=== PATIENT | male | born 1960 | race Caucasian/White ===

== ENCOUNTER → 2018-10-19 07:27 | Outpatient (CLI) | payer OTHER, SELFPAY ==
--- NOTE | 2018-10-19 07:33 | US_ITS ---
US abdomen complete HISTORY: ITS.REASON: ABD PAIN ORDERING PHYSICIAN: Julián Hahn MD PATIENT AGE: 57 years COMPARISON: None FINDINGS: Visualized portions of the pancreas and IVC appear normal. There is diffuse increased echogenicity throughout the liver without focal abnormality. AP diameter of the right hepatic lobe is 13.5 cm which is normal. Common bile duct is 3.7 mm which is normal. There is no intrahepatic biliary dilatation. Gallbladder is normal. The length of the right and left kidneys are 10.3 and 10.8 cm respectively. Kidneys appear normal. Length of the spleen is 9.2 cm which is normal. Visualized portions of the aorta are unremarkable although this area is evaluation is limited because of attenuation of the sound beam because of the bowel gas. Impression: Possible hepatic steatosis or fibrosis. No acute process.
== END ==
PROVIDERS: PCP Family Medicine; Visit Provider Family Medicine
DX: R10.13 Epigastric pain (principal)
CPT/HCPCS: 76700

== ENCOUNTER → 2018-11-06 11:29 | Outpatient (CLI) | payer OTHER, SELFPAY ==
[2018-11-06 11:58] LABS: Basophils % 0.6 % (0.1-2.0); Eosinophils # 0.4 K/mm3 (0.0-0.4); Eosinophils % 5.5 % (0.1-12.0); Hematocrit 45.6 % (42.0-52.0); Hemoglobin 14.7 g/dL (14.1-18.0); Lymphocytes # 1.6 K/mm3 (0.7-4.5); Lymphocytes % 23.2 % (10-50); Mean Corpuscular HGB Conc 32.3 g/dL (31.8-35.4); Mean Corpuscular Hemoglobin 31.5 pg (27.0-31.2); Mean Corpuscular Volume 97.5 fl (80-94); Mean Platelet Volume 7.4 fl (7.4-10.4); Monocytes # 0.5 K/mm3 (0.1-1.0); Monocytes % 7.1 % (1.7-9.3); Neutrophils # 4.3 K/mm3 (1.8-7.8); Neutrophils % 63.6 % (37.0-80.0); Platelet Count 284 K/mm3 (142-424); Red Blood Count 4.67 M/mm3 (4.60-6.20); Red Cell Distribution Width 13.4 % (11.5-17.5); White Blood Count 6.8 K/mm3 (4.8-10.8)
[2018-11-06 12:31] LABS: INR 0.96 (0.9-1.1)
[2018-11-06 13:04] LABS: Alanine Aminotransferase 50 U/L (12-78); Albumin Level 3.9 gm/dL (3.4-5.0); Albumin/Globulin Ratio 1.1 (1.1-1.8); Alkaline Phosphatase 62 U/L (46-116); Anion Gap 12.5 mEq/L (5-15); Aspartate Amino Transferase 21 U/L (15-37); Bilirubin,Total 0.5 mg/dL (0.2-1.0); Blood Urea Nitrogen 20 mg/dL (7-18); Calcium 9.9 mg/dL (8.5-10.1); Carbon Dioxide 30 mmol/L (21.0-32.0); Chloride 103 mmol/L (98-107); Creatinine,Serum 1.02 mg/dL (0.70-1.30); Estimated Glomerular Filt Rate 75 ml/min (>60); GFR (African American) 91 ML/MIN (>60); Globulin 3.7 gm/dl (1.3-3.2); Glucose 102 mg/dL (74-106); Potassium 4.5 mmoL/L (3.5-5.1); Sodium 141 mmol/L (136-145); Total Protein,Serum 7.6 gm/dL (6.4-8.2)
[2018-11-07 08:16] LABS: Hep A Ab, IgM Negative (Negative); Hepatitis B Core Antibody IgM Negative (Negative); Hepatitis B Surface Antigen Negative (Negative)
[2018-11-08 09:35] LABS: Hepatitis C Antibody <0.1 s/co ratio (0.0-0.9)
== END ==
PROVIDERS: Visit Provider Surgery
DX: R10.12 Left upper quadrant pain (principal); R10.9 Unspecified abdominal pain
CPT/HCPCS: 36415; 80053; 80074; 85025; 85610

== ENCOUNTER → 2018-12-18 08:00 | Outpatient (POV) | payer OTHER, SELFPAY ==
[2018-12-18 08:34] VITALS: BP 136/93; PULSE 65; RESP 18; O2SAT 98; BMI 35.2
--- NOTE | 2018-12-18 09:23 | XR_ITS ---
PROCEDURE: XR SACROILIAC JOINT BI MIN 3V CLINICAL INDICATION: BACK AND LEG PAIN COMPARISON: ABDPELW CT ABD PELVIS W/ CONTRAST from 02/21/2017 FINDINGS: The SI joints have an unremarkable appearance. There are minimal osteoarthritic changes of the right hip IMPRESSION: Negative SI joints Minimal osteoarthritic change right hip Dictated by: Juma Reed MD 12/18/2018 14:26 Electronically signed by Juma Reed MD in [place] 12/18/2018 14:26
--- NOTE | 2018-12-19 10:54 | HMH.PMCON ---
Assessment and Plan (1) Sacroiliac joint pain Current visit: Yes Status: Chronic Category: Medical Code(s): M53.3 - Sacrococcygeal disorders, not elsewhere classified (2) Sacroiliitis Current visit: Yes Status: Chronic Category: Medical Code(s): M46.1 - Sacroiliitis, not elsewhere classified - Assessment and plan all Dx Assessment and Plan for all problems:: We will schedule right SI joint injection for the patient. Patient had talked about the diagnostic nature of this. Patient may be a candidate for either an SI joint fusion or RFA. I do believe this would benefit him given his non-benefit from epidurals and medial branch blocks. I will follow-up with the patient after his injection reassess his symptoms at that time he is been instructed to call the office if he has any issues prior to his next appointment. He is continuing a home stretching program. Dr. Barrera has reviewed this note and agrees with this plan of care. This note was dictated using voice recognition software and may contain errors or omissions HPI - Data of Consult Consult date: 12/18/18 Requesting Physician: Elizabeth Conde APRN Primary Care Provider: Lalito Conklin MD - Consult Narrative Reason for consult: Low back pain History of present illness: Mr. Schmitz is a 58 year old male who presents today for consultation in regards to his low back pain on the right side. Patient is seen multiple specialists in order to move forward with treatment. He had several epidural injections and blocks. Patient states most the pain is low back on the right side radiating into his groin and down his leg but does not past the knee. Patient has difficulty with extended periods of sitting. Patient rates his pain today 5 out of 10 and states is constant. Patient is tried multiple medications. Patient is on anti-inflammatories. He is tried physical therapy he has done over 6 months of conservative therapies. CC: Elizabeth Conde APRN [facility] History I have reviewed the patient's past medical history: Yes Medical History: Reports:: Anxiety, Depression, Gastroesophageal Reflux Disease(GERD), Hypertension, Kidney Stones Denies:: Diabetes Mellitus Type 1, Diabetes Mellitus Type 2, Lung Disease, Seizures *Have you ever received a pneumonia vaccine?: Yes *Have you received a flu vaccine this season?: Yes Other Medical History: Reports: Arthritis Other Surgeries: Yes: Appendectomy, Colonoscopy, EGD, Other Amputation: No - *Social History Smoking Status: Never smoker Alcohol Intake: never Alcohol Intake Frequency:: a few times a week Substance Use Type: denies use *Occupational Status:: other Housing: house Household Members: other *Travel in the last 8 weeks: None - Psychiatric History Pschychiatric History:: Reports:: Anxiety, Depression Family Hx:: No significant family history Review of Systems - Review of Systems ROS General: no recent weight change, no fever, no sleep disturbances Respiratory: no cough, no shortness of air, no recurring pulmonary infections Cardiovascular/Peripheral Vascular: No chest pain, No palpitations, no edema, no shortness of breath. Gastrointestinal: no incontinence, normal bowel movements reported Genitourinary: no incontinence Musculoskeletal: SI joint pain on the right side Psychiatric: normal mood/ affect, Neurological: [denies weakness in extremities], [denies balance issues] Meds Home Medications Medication Instructions Recorded Confirmed Type acetaminophen 500 mg tablet 500 mg PO Q6H PRN 11/06/18 12/04/18 History meloxicam 15 mg tablet 15 mg PO DAILY 11/06/18 12/04/18 History metoprolol succinate ER 100 mg 100 mg PO DAILY 11/06/18 12/04/18 History capsule sprinkle, ext. release [address] 40 mg granules 40 mg PO DAILY 11/06/18 12/04/18 History delayed-release for susp in packet tizanidine 4 mg capsule 4 mg PO QHS PRN 11/06/18 12/04/18 History valsartan 320 1 t
--- NOTE | 2018-12-19 10:59 | P.CONS_ITS ---
Assessment and Plan (1) Sacroiliac joint pain Current visit: Yes Status: Chronic Category: Medical Code(s): M53.3 - Sacrococcygeal disorders, not elsewhere classified (2) Sacroiliitis Current visit: Yes Status: Chronic Category: Medical Code(s): M46.1 - Sacroiliitis, not elsewhere classified - Assessment and plan all Dx Assessment and Plan for all problems:: We will schedule right SI joint injection for the patient. Patient had talked about the diagnostic nature of this. Patient may be a candidate for either an SI joint fusion or RFA. I do believe this would benefit him given his non- benefit from epidurals and medial branch blocks. I will follow-up with the patient after his injection reassess his symptoms at that time he is been instructed to call the office if he has any issues prior to his next appointment. He is continuing a home stretching program. Dr. Barrera has reviewed this note and agrees with this plan of care. This note was dictated using voice recognition software and may contain errors or omissions HPI - Data of Consult Consult date: 12/18/18 Requesting Physician: Elizabeth Conde APRN Primary Care Provider: Lalito Conklin MD - Consult Narrative Reason for consult: Low back pain History of present illness: Mr. Schmitz is a 58 year old male who presents today for consultation in regards to his low back pain on the right side. Patient is seen multiple specialists in order to move forward with treatment. He had several epidural injections and blocks. Patient states most the pain is low back on the right side radiating into his groin and down his leg but does not past the knee. Patient has difficulty with extended periods of sitting. Patient rates his pain today 5 out of 10 and states is constant. Patient is tried multiple medications. Patient is on anti-inflammatories. He is tried physical therapy he has done over 6 months of conservative therapies. CC: Elizabeth Conde APRN [facility] History I have reviewed the patient's past medical history: Yes Medical History: Reports:: Anxiety, Depression, Gastroesophageal Reflux Disease(GERD), Hypertension, Kidney Stones Denies:: Diabetes Mellitus Type 1, Diabetes Mellitus Type 2, Lung Disease, Seizures *Have you ever received a pneumonia vaccine?: Yes *Have you received a flu vaccine this season?: Yes Other Medical History: Reports: Arthritis Other Surgeries: Yes: Appendectomy, Colonoscopy, EGD, Other Amputation: No - *Social History Smoking Status: Never smoker Alcohol Intake: never Alcohol Intake Frequency:: a few times a week Substance Use Type: denies use *Occupational Status:: other Housing: house Household Members: other *Travel in the last 8 weeks: None - Psychiatric History Pschychiatric History:: Reports:: Anxiety, Depression Family Hx:: No significant family history Review of Systems - Review of Systems ROS General: no recent weight change, no fever, no sleep disturbances Respiratory: no cough, no shortness of air, no recurring pulmonary infections Cardiovascular/Peripheral Vascular: No chest pain, No palpitations, no edema, no shortness of breath. Gastrointestinal: no incontinence, normal bowel movements reported Genitourinary: no incontinence Musculoskeletal: SI joint pain on the right side Psychiatric: normal mood/ affect, Neurological: [denies weakness in extremities], [denies balance issues] Meds Home Medications Medication Instructions Recorded Confirmed Type
== END ==
PROVIDERS: PCP Family Medicine; Visit Provider Clinical Nurse Specialist Family Health
DX: M53.3 Sacrococcygeal disorders, not elsewhere classified (principal); M46.1 Sacroiliitis, not elsewhere classified
CPT/HCPCS: 72202; 99202

== ENCOUNTER → 2020-06-02 08:13 | Outpatient (CLI) | payer OTHER, SELFPAY ==
[2020-06-02 09:37] LABS: Coronavirus 19 IgG Antibody Negative (Negative); Coronavirus 19 IgM Antibody Negative (Negative)
== END ==
PROVIDERS: Visit Provider Surgery
DX: Z01.812 Encounter for preprocedural laboratory examination (principal)
CPT/HCPCS: 36415; 86328

== ENCOUNTER 2020-06-04 06:09 | Day surgery (SDC) | payer OTHER, SELFPAY ==
[2020-06-02 16:37] VITALS: BMI 35.9
[2020-06-04 07:01] VITALS: BP 129/82; PULSE 71; RESP 18; TEMP 36.1; O2SAT 98
[2020-06-04 07:31] VITALS: O2SAT 98
--- NOTE | 2020-06-04 07:56 | HMH.ANESCL ---
[facility] Anesthesia Checklist - Patient Identification Patient Identification: Arm Band - Structural Data Admitted From: Home Planned Operative Procedure/s: colonoscopy Consent for Planned Operative Procedure(s) Verified: Yes Verified Documents: Surgical Consent, History and Physical - NPO Status Verified Time NPO: 00:00 - Additional verifications Anesthesia Reactions: No - Airway Assessment C-Spine Mobility Assessed: Yes (mp2) TMJ Mobility Assessed: Yes Dentition: Good Dentition - Neurological Assessment Level of Consciousness: Awake, Alert - Anesthesia Plan Anesthesia Risk discussed: Yes Anesthesia Plan: Verified ASA Class: II Anesthesia Type: MAC [facility] History I have reviewed the patient's past medical history: Yes Medical History: Reports:: Anxiety, Depression, Gastroesophageal Reflux Disease(GERD), Hyperlipidemia, Hypertension, Kidney Stones Denies:: Cancer, Diabetes Mellitus Type 1, Diabetes Mellitus Type 2, Internal Pacemaker, Lung Disease, MRSA, Seizures *Have you ever received a pneumonia vaccine?: No *Have you received a flu vaccine this season?: Yes Other Medical History: Reports: Arthritis Anesthesia experience/problems:: nac Other Surgeries: Yes: Appendectomy, Colonoscopy, EGD, Other. No: Pacemaker Amputation: No - *Social History Smoking Status: Never smoker Alcohol Intake: never Alcohol Intake Frequency:: a few times a week Substance Use Type: denies use *Occupational Status:: retired Housing: house Household Members: other *Travel in the last 8 weeks: None - Psychiatric History Pschychiatric History:: Reports:: Anxiety, Depression Family Hx:: No significant family history
[2020-06-04 08:12] VITALS: BP 99/68; PULSE 68; RESP 18; TEMP 36.1; O2SAT 96
--- NOTE | 2020-06-04 08:13 | P.PCN_ITS ---
- Procedure: Date: 06/04/20 Patient Date of :: 1960 Procedure Performed:: Total colonoscopy to terminal ileum with biopsies and polypectomy using cold snare and biopsy forceps Indications:: Patient is a 59-year-old male referred by Dr. Conklin for colonoscopy to investigate bright red rectal bleeding. Of note, the patient underwent ERCP in [address] Luther Dickson for pancreatic pseudocyst and had developed pancreatitis. In December, he underwent EGD and colonoscopy by Dr. Sheets. He was found to have: Sliding hiatal hernia Moderate to severe patchy gastritis Shallow linear proximal gastric body ulcer Bowel preparation moderate for colonoscopy Fairly significant tortuosity and spasticity Focal inflammatory changes at ileocecal valve Transverse colon polyp Adjacent large pedunculated polyps at 25 cm Adjacent large pedunculated polyps at 20 cm Large pedunculated polyp at 18 cm Anal canal polyp He did have H. pylori positivity. He had marked chronic focally active gastritis. Several polyps were removed including at least 3 serrated adenomas and a tubular adenoma. It appeared as though Dr. Sheets had recommended a repeat colonoscopy 6 months.he did not have a subsequent colonoscopy. I had done appendectomy on him on 01/17/2017. I had performed upper endoscopy on him on 11/21/2018 and he did have a sliding hiatal hernia. He has had about 6 months of occasional rectal bleeding with what he describes as sometimes significant blood. Performing Provider:: Mahesh Jacobson MD Referring Provider:: Lalito Conklin MD Sedation:: MAC sedation Procedure:: Patient was taken to endoscopy procedure room. He was positioned in lateral decubitus position. Digital examination revealed some minor noninflamed external hemorrhoids. Variable stiffness Olympus colonoscope was inserted via the anus. It was advanced to the cecum. Appendiceal remnant and ileocecal valve were clearly identified. Colonic preparation was fair but adequate visualization was achieved with irrigation and suctioning. Colonoscope was advanced into the terminal ileum. There is some minor erythematous mucosa and biopsies were obtained. Colonoscope was withdrawn through the colon with careful surveillance. In the cecum there is tiny diminutive polyp removed with biopsy forceps. In the proximal transverse colon there was an adenomatous appe aring polyp removed with cold cutting snare. In the distal transverse colon there is a diminutive polyp removed with biopsy forceps. In the splenic flexure there is a small polyp removed with cold cutting snare. In the sigmoid colon there was a polyp removed with biopsy forceps. In the distal sigmoid there were multiple hyperplastic appearing polyps removed with biopsy forceps. In the rectosigmoid region there were multiple hyperplastic appearing polyps removed with biopsy forceps. The rectum there were several hyperplastic appearing polyps 2 of these were removed with cold cutting snare and 1 removed with biopsy forceps. Retroflexion revealed nonbleeding internal hemorrhoids. Colonoscope was withdrawn. Findings:: Patchy erythema in the terminal ileum. Multiple polyps, mostly appeared hyperplastic Internal hemorrhoids Recommendations:: Likely repeat colonoscopy in 3 years. Source of bleeding was likely internal hemorrhoids given the findings Complications:: None immediately apparent Estimated blood obtained (mL): 3
[2020-06-04 08:22] VITALS: BP 122/86; PULSE 76; RESP 18; O2SAT 97
[2020-06-04 08:33] VITALS: BP 155/106; PULSE 69; RESP 18; O2SAT 97
[2020-06-04 08:49] VITALS: BP 144/93; PULSE 53; RESP 18; O2SAT 98
== END 2020-06-04 08:55 | disposition home or self-care (01) ==
LOC: OUTP 06:11
PROVIDERS: PCP Family Medicine; Visit Provider Surgery
PROC: 0DJD8ZZ Inspection of Lower Intestinal Tract, Via Natural or Artificial Opening Endoscopic (ICD-10-PCS; CPT 45385; principal; 2020-06-04 07:30)
DX: Z87.19 Personal history of other diseases of the digestive system; L53.8 Other specified erythematous conditions; K63.5 Polyp of colon; K64.9 Unspecified hemorrhoids; I10 Essential (primary) hypertension; E78.5 Hyperlipidemia, unspecified; K21.9 Gastro-esophageal reflux disease without esophagitis; F41.9 Anxiety disorder, unspecified; F32.9 Major depressive disorder, single episode, unspecified; M19.90 Unspecified osteoarthritis, unspecified site; Z79.899 Other long term (current) drug therapy
CPT/HCPCS: 45385; 45380

== ENCOUNTER → 2020-08-07 08:32 | Outpatient (CLI) | payer MEDICARE, OTHER, SELFPAY ==
--- NOTE | 2020-08-07 08:36 | XR_ITS ---
PROCEDURE: XR SHOULDER LT MIN 2V CLINICAL INDICATION: LT SHOULDER PAIN COMPARISON: No exams were available for comparison FINDINGS: No fracture or dislocation. No lytic or blastic change. There is normal mineralization. The joint spaces are well-preserved. No significant degenerative/arthritic changes. No erosive changes evident. Other findings:Calcified granuloma in the left hemithorax. Visualized left hemithorax is otherwise unremarkable. No significant soft tissue abnormality is noted. IMPRESSION: No acute findings. Dictated by: Rosmery Gasca 08/07/2020 09:01 Rosmery Gasca in OV 08/07/2020 09:01
--- NOTE | 2020-08-07 08:36 | XR_ITS ---
CLINICAL INDICATION: RT KNEE PAIN COMPARISON: No exams were available for comparison TECHNIQUE: FINDINGS: The bony structures are intact, well-aligned, and normally mineralized. The joint spaces are preserved. No soft tissue calcifications are noted. No suprapatellar joint effusion. No significant soft tissue abnormality. IMPRESSION: No evidence of fracture or other significant radiographic abnormality. Dictated by: Rosmery Gasca 08/07/2020 09:01 Rosmery Gasca in OV 08/07/2020 09:01
== END ==
PROVIDERS: PCP Family Medicine; Visit Provider Family Medicine
DX: M25.512 Pain in left shoulder (principal); M25.561 Pain in right knee
CPT/HCPCS: 73030; 73562

== ENCOUNTER → 2021-11-04 06:11 | Outpatient (CLI) | payer MEDICARE, SELFPAY ==
[2021-11-04 21:57] LABS: Alanine Aminotransferase 37 U/L (12-78); Albumin/Globulin Ratio 1.4 (1.1-1.8); Alkaline Phosphatase 87 U/L (38-126); Anion Gap 11.5 mEq/L (5-15); Aspartate Amino Transferase 36 U/L (17-59); Bilirubin,Total 0.4 mg/dl (0.2-1.3); Blood Urea Nitrogen 17 mg/dl (9-20); Calcium 9.7 mg/dl (8.4-10.2); Carbon Dioxide 30 mmol/L (22.0-30.0); Chloride 102 mmol/L (98-107); Chol/HDL Ratio 3.4 (1-3.5); Cholesterol 223 mg/dl (140-200); Estimated Glomerular Filt Rate 99 ml/min (>60); GFR (African American) 119 ML/MIN (>60); Globulin 2.9 g/dL (1.3-3.2); Glucose 168 mg/dl (74-100); HDL Cholesterol 65 mg/dl (40-60); Potassium 4.5 mmoL/L (3.5-5.1); Sodium 139 mmol/L (136-145); Total Protein,Serum 6.9 g/dl (6.3-8.2); Triglycerides 100 mg/dl (30-150); VLDL Cholesterol 20 mg/dL (0-40)
[2021-11-04 21:59] LABS: Basophils # 0.1 K/mm3 (0-0.2); Basophils % 0.8 % (0.1-2.0); Eosinophils # 0.3 K/mm3 (0.0-0.4); Eosinophils % 3.4 % (0.1-12.0); Hematocrit 46.3 % (42.0-52.0); Hemoglobin 14.5 g/dL (14.1-18.0); Lymphocytes # 1.6 K/mm3 (0.7-4.5); Mean Corpuscular HGB Conc 31.4 g/dL (31.8-35.4); Mean Corpuscular Hemoglobin 30.2 pg (27.0-31.2); Mean Corpuscular Volume 96.2 fl (80-94); Mean Platelet Volume 9.4 fl (7.4-10.4); Monocytes # 0.7 K/mm3 (0.1-1.0); Neutrophils # 5.5 K/mm3 (1.8-7.8); Neutrophils % 67.8 % (37.0-80.0); Platelet Count 302 K/mm3 (142-424); Red Blood Count 4.81 M/mm3 (4.60-6.20); Red Cell Distribution Width 13.5 % (11.5-17.5); White Blood Count 8.1 K/mm3 (4.8-10.8)
[2021-11-04 22:28] LABS: Prostate Specific Ag Screen 0.3 ng/ml (0.0-4.0)
[2021-11-04 22:30] LABS: Microalbumin/Creatinine Ratio 3.6; Thyroid Stimulating Hormone 1.34 uIU/mL (0.465-4.68)
[2021-11-04 22:43] LABS: Creatinine,Urine Random 168 mg/dL (Not Estab.)
[2021-11-04 23:17] LABS: Hemoglobin A1C 7.6 % (4.0-6.0)
[2021-11-06 09:46] LABS: Direct LDL Cholesterol 135 mg/dL (100-129)
== END ==
PROVIDERS: PCP Family Medicine; Visit Provider Family Medicine
DX: E11.9 Type 2 diabetes mellitus without complications (principal); E78.5 Hyperlipidemia, unspecified; I10 Essential (primary) hypertension; K21.9 Gastro-esophageal reflux disease without esophagitis; Z12.5 Encounter for screening for malignant neoplasm of prostate; Z79.84 Long term (current) use of oral hypoglycemic drugs
CPT/HCPCS: 80053; 80061; 82043; 82570; 83036; 84443; 85025; G0103

== ENCOUNTER → 2021-12-14 11:53 | Outpatient (CLI) | payer MEDICARE, SELFPAY | PROVIDERS: PCP Family Medicine; Visit Provider Internal Medicine | DX: Z01.818 Encounter for other preprocedural examination (principal); Z20.822 Contact with and (suspected) exposure to COVID-19; Z12.11 Encounter for screening for malignant neoplasm of colon | CPT/HCPCS: C9803; U0003; U0005 ==

== ENCOUNTER 2021-12-16 09:12 | Day surgery (SDC) | payer MEDICARE, SELFPAY ==
[2021-12-14 15:57] VITALS: BMI 42.3
[2021-12-16] VITALS (7 sets, daily range): BP systolic 90–145; BP diastolic 52–82; PULSE 64–84; RESP 16–18; TEMP 36.1–36.6; O2SAT 93–98
--- NOTE | 2021-12-16 09:40 | EXP.ANES.CKL ---
PF[facility] PFS Medical History (Updated 12/14/21 @ 15:53 by Alexa Manzano, RN) Anxiety Arthritis Colonoscopy planned Depression Diabetes mellitus, type 2 High blood pressure History of gastroesophageal reflux (GERD) Hyperlipidemia Kidney stone Pancreatitis Surgical History (Updated 12/14/21 @ 15:53 by Alexa Manzano, RN) History of appendectomy Family History (Updated 12/14/21 @ 15:54 by Alexa Manzano, RN) Grandfather Colon cancer Grandmother Family history of myocardial infarction Family history of Alzheimer's disease Mother Family history of diabetes mellitus type II Social History (Updated 12/14/21 @ 15:55 by Alexa Manzano, RN) Smoking Status: Former smoker alcohol intake: current substance use type: denies use current occupational status: disabled Travel in the last 8 weeks: None household members: other housing: house current occupational exposures/hazards: No caffeine: Yes [facility] Anesthesia Checklist Patient Identification Patient Identification: Arm Band and Verbal (Name & ) Structural Data Admitted From: Home Planned Operative Procedure/s: Colonoscopy Consent for Planned Operative Procedure(s) Verified: Yes NPO Status Verified Time NPO: 00:00 Additional verifications Anesthesia Reactions: No Airway Assessment C-Spine Mobility Assessed: Yes TMJ Mobility Assessed: Yes Dentition: Good Dentition Neurological Assessment Level of Consciousness: Awake Hx Seizures: No Numbness or tingling in extremities: No Anesthesia Plan Anesthesia Risk discussed: Yes Anesthesia Plan: Verified ASA Class: III Anesthesia Type: MAC
[2021-12-16 09:56] LABS: POC Glucose,Bedside 147 (70-110)
--- NOTE | 2021-12-16 11:00 | HMH.SCOPE ---
Procedure: Date: 12/16/21 Patient Date of :: 1960 Procedure Performed:: Colonoscopy Indications:: The patient has al history of colon polyps. There is a family history of colon cancer in a paternal grandfather. His father had had cancer, but the type of cancer is not known Performing Provider:: Paco Espinosa MD Referring Provider:: Sebas Hahn MD Sedation:: See RN records Procedure:: After placing the patient in the left lateral decubitus position, the colonoscopy was gently inserted into the rectum and under direct visualization advanced to the cecum which was identified by transillumination in the right lower quadrant, identification of the ileocecal valve, appendiceal orifice, and cecal strap. Color, texture, mucosa, and anatomy of the colon were carefully examined with the scope. Findings:: Anal canal: normal Rectum: Internal hemorrhoids Sigmoid colon: Two sessile polyps less than 5 mm in size. Removed with cold snre polypectomy Descending colon: Sessile polyp with mucus cap, 8 mm in sizes. Removed with cold snare polypectomy Splenic flexure: normal Transverse colon: Sessile polyp less than 5 mm in size. Removed with cold snare polypectomy Hepatic flexure: normal Ascending colon: Sessile polyp less than 5 mm in size. Removed with cold snare polypectomy Cecum: normal Terminal ileum: not visualized Recommendations:: Await pathology results Repeat colonoscopy in 2 years Complications:: none Estimated blood obtained (mL): 0
== END 2021-12-16 11:50 | disposition home or self-care (01) ==
PROVIDERS: PCP Family Medicine; Visit Provider Internal Medicine
PROC: 0DJD8ZZ Inspection of Lower Intestinal Tract, Via Natural or Artificial Opening Endoscopic (ICD-10-PCS; CPT 45378; principal; 2021-12-16 10:30)
DX: Z12.11 Encounter for screening for malignant neoplasm of colon (principal); K63.5 Polyp of colon; Z86.010 Personal history of colon polyps; Z80.0 Family history of malignant neoplasm of digestive organs; Z79.899 Other long term (current) drug therapy; D12.2 Benign neoplasm of ascending colon; D12.3 Benign neoplasm of transverse colon; D12.4 Benign neoplasm of descending colon
CPT/HCPCS: 45385; 82962; 88305

== ENCOUNTER 2021-12-19 14:25 | Emergency (ER) | payer MEDICARE, SELFPAY ==
[2021-12-19] VITALS (7 sets, daily range): BP systolic 103–148; BP diastolic 59–92; PULSE 68–86; RESP 16–18; TEMP 36.6–36.8; O2SAT 94–98; BMI 36.5
--- NOTE | 2021-12-19 14:47 | HMH.EDGENADL ---
Discharge Plan Disposition Patient Disposition: Home, Self-Care Condition: Good Prescriptions Prescriptions: New cephalexin 500 mg capsule 500 mg PO Q6H 7 Days Qty: 28 0RF No Action gabapentin 800 mg tablet 800 mg PO QID pantoprazole 40 mg tablet,delayed release (DR/EC) 40 mg PO DAILY metoprolol succinate 100 mg capsule,sprinkle,ER 24hr 100 mg PO DAILY acetaminophen [Tylenol Extra Strength] 500 mg tablet 500 mg PO Q6H PRN (Reason: Pain, Mild) valsartan-hydrochlorothiazide 320-25 mg tablet 1 tab PO DAILY Qty: 90 1RF atorvastatin 40 mg tablet 40 mg PO DAILY Qty: 90 0RF duloxetine 60 mg capsule,delayed release(DR/EC) 60 mg PO DAILY Qty: 90 0RF oxycodone-acetaminophen 1 EACH tablet 1 each PO TID metformin 500 mg tablet extended release 24 hr 500 mg PO DAILY aripiprazole 10 mg tablet 10 mg PO DAILY Referrals Follow up/Referrals: Lalito Conklin MD [Primary Care Provider] - See instructions Clinical Impressions Clinical Impression: Post-operative pain Instructions Patient Instructions: DI for Acute Pain -- Adult Discharge ED Provider: Jean-Pierre Julio General Adult HPI General Chief complaint: PAIN Stated complaint: Colonoscopy 12-16-21 issues Time Seen by Provider: 12/19/21 14:49 Mode of Arrival: Ambulatory Source of Information: Patient Limitations: No Limitations Description of Symptoms (Recalled from ER Triage Doc. by RN): to ed per pvt car pt states he had a colonoscopy weds started have rectal pain 2 days ago. pt denies fever, chills, nausea, vomiting or abd pain History of Present Illness HPI narrative: 61-year-old male recently had colonoscopy, states it was his third, noticed that he has had some discomfort ever since the procedure however over the last day or so has had significantly worsening discomfort that has along the margin of the gluteal cleft just superior to the rectum, not so much in the rectal area specifically. Denies fever, chills, nausea, vomiting, abdominal pain, diarrhea, any significant amount of blood in stools, any thrombosed hemorrhoids or other new issues. He has not pursued any treatment prior to this visit. Pain is present all the time describes moderate to severe worse on palpation examination of the area or with sitting Related Data Home Medications Medication Instructions Recorded Confirmed acetaminophen 500 mg tablet 500 mg PO Q6H PRN Pain, Mild 11/06/18 12/16/21 (Tylenol Extra Strength) metoprolol succinate 100 mg 100 mg PO DAILY High blood pressure 11/06/18 12/14/21 capsule sprinkle, ext. release 24 hr oxycodone-acetaminophen 5 mg-325 1 each PO TID Pain 06/02/20 12/14/21 mg tablet gabapentin 800 mg tablet 800 mg PO QID Pain 11/04/21 12/14/21 pantoprazole 40 mg tablet,delayed 40 mg PO DAILY GERD 11/04/21 12/14/21 release aripiprazole 10 mg tablet 10 mg PO DAILY mood 12/14/21 12/16/21 metformin 500 mg tablet,extended 500 mg PO DAILY Diabetes 12/14/21 12/16/21 release 24 hr Previous Rx's Medication Instructions Recorded valsartan 320 1 tab PO DAILY High blood pressure 10/28/21 mg-hydrochlorothiazide 25 mg tablet #90 tabs atorvastatin 40 mg tablet 40 mg PO DAILY Cholesterol #90 tabs 12/10/21 duloxetine 60 mg capsule,delayed 60 mg PO DAILY mood #90 caps 12/10/21 release cephalexin 500 mg capsule 500 mg PO Q6H 7 days #28 caps 12/19/21 Allergies Allergy/AdvReac Type Severity Reaction Status Date / Time No Known Allergies Allergy Verified 12/16/21 09:42 [facility] Medical History Anxiety Arthritis Colonoscopy planned Depression Diabetes mellitus, type 2 High blood pressure History of gastroesophageal reflux (GERD) Hyperlipidemia Kidney stone Pancreatitis Surgical History History of appendectomy Family History
--- NOTE | 2021-12-19 14:55 | CT_ITS ---
PROCEDURE INFORMATION: Exam: CT Abdomen And Pelvis With Contrast Exam date and time: 12/19/2021 4:32 PM Age: 61 years old Clinical indication: Abdominal pain; Patient HX: Recent colonoscopy; Additional info: Post-op pain TECHNIQUE: Imaging protocol: Computed tomography of the abdomen and pelvis with contrast. Radiation optimization: All CT scans at this facility use at least one of these dose optimization techniques: automated exposure control; mA and/or kV adjustment per patient size (includes targeted exams where dose is matched to clinical indication); or iterative reconstruction. Contrast material: ISOVUE; Contrast volume: 75 ml; Contrast route: IV; COMPARISON: ABDPELW CT ABD PELVIS W/ CONTRAST 02/21/2017 9:36 AM FINDINGS: Liver: Hepatic steatosis. Gallbladder and bile ducts: Normal. No calcified stones. No ductal dilation. Pancreas: Normal. No ductal dilation. Spleen: Normal. No splenomegaly. Adrenal glands: 2 cm left adrenal nodule. Findings increased in size and density since the 2017 examination. Recommend follow-up with magnetic resonance imaging without and with contrast for further evaluation. Kidneys and ureters: Bilateral perinephric stranding. Findings nonspecific and may reflect acute versus chronic inflammatory change. Small cyst upper pole right kidney. Stomach and bowel: Unremarkable. No obstruction. No mucosal thickening. Appendix: History of previous appendectomy. Intraperitoneal space: Unremarkable. No free air. No significant fluid collection. Vasculature: Scattered regions of atherosclerotic vascular calcification within the abdominal aorta and common iliac arteries. Lymph nodes: Unremarkable. No enlarged lymph nodes. Urinary bladder: Unremarkable as visualized. Reproductive: Unremarkable as visualized. Bones/joints: Unremarkable. No acute fracture. Soft tissues: Small bilateral fat filled inguinal hernias. IMPRESSION: 1. 2 cm left adrenal nodule. Findings have increased in size in density since 2017. Recommend follow-up with magnetic resonance imaging without and with contrast. 2. Please see above report for discussion of nonacute findings. COMMENTS: Consistent with the [employer]'s Incidental Findings Committee white paper (J Am Blair Radiol 2018): Any incidental renal lesion less than 1 cm or classified as too small to characterize, or any incidental cystic renal lesion characterized as simple-appearing, is likely benign. No follow-up imaging is recommended for these lesions per consensus recommendations based on imaging criteria.
[2021-12-19 16:15] LABS: Basophils # 0.1 K/mm3 (0-0.2); Basophils % 0.7 % (0.1-2.0); Eosinophils # 0.3 K/mm3 (0.0-0.4); Eosinophils % 2.7 % (0.1-12.0); Hematocrit 40.9 % (42.0-52.0); Hemoglobin 13.5 g/dL (14.1-18.0); Lymphocytes # 1.8 K/mm3 (0.7-4.5); Lymphocytes % 18.3 % (10-50); Mean Corpuscular HGB Conc 32.9 g/dL (31.8-35.4); Mean Corpuscular Hemoglobin 30.6 pg (27.0-31.2); Mean Corpuscular Volume 92.9 fl (80-94); Mean Platelet Volume 8.2 fl (7.4-10.4); Monocytes # 0.8 K/mm3 (0.1-1.0); Monocytes % 7.9 % (1.7-9.3); Neutrophils % 70.4 % (37.0-80.0); Platelet Count 265 K/mm3 (142-424); Red Blood Count 4.41 M/mm3 (4.60-6.20); Red Cell Distribution Width 13.4 % (11.5-17.5); White Blood Count 9.9 K/mm3 (4.8-10.8)
[2021-12-19 16:17] LABS: Chloride 101 mmol/L (98-107); Potassium 4.1 mmoL/L (3.5-5.1); Sodium 142 mmol/L (136-145)
[2021-12-19 16:20] LABS: Alanine Aminotransferase 30 U/L (12-78); Albumin Level 3.8 g/dl (3.5-5.0); Albumin/Globulin Ratio 1.3 (1.1-1.8); Alkaline Phosphatase 77 U/L (38-126); Anion Gap 12.1 mEq/L (5-15); Aspartate Amino Transferase 31 U/L (17-59); Bilirubin,Total 0.3 mg/dl (0.2-1.3); Blood Urea Nitrogen 15 mg/dl (9-20); Carbon Dioxide 33 mmol/L (22.0-30.0); Creatinine Clearance Estimated 151 mL/min (50-200); Estimated Glomerular Filt Rate 99 ml/min (>60); GFR (African American) 119 ML/MIN (>60); Total Protein,Serum 6.8 g/dl (6.3-8.2)
[2021-12-19 16:21] LABS: Calcium 9.1 mg/dl (8.4-10.2); Glucose 118 mg/dl (74-100)
--- NOTE | 2021-12-19 16:46 | PC.NURSE ---
PT BACK FROM RAD
== END 2021-12-19 18:38 | disposition home or self-care (01) ==
PROVIDERS: Emergency Provider Emergency Medicine; PCP Family Medicine
DX: K62.89 Other specified diseases of anus and rectum (principal); I10 Essential (primary) hypertension; K21.9 Gastro-esophageal reflux disease without esophagitis; E78.5 Hyperlipidemia, unspecified; E11.9 Type 2 diabetes mellitus without complications; M19.90 Unspecified osteoarthritis, unspecified site; N20.0 Calculus of kidney; Z79.1 Long term (current) use of non-steroidal anti-inflammatories (NSAID); Z79.84 Long term (current) use of oral hypoglycemic drugs; Z79.899 Other long term (current) drug therapy; Z83.3 Family history of diabetes mellitus; Z81.8 Family history of other mental and behavioral disorders; Z80.0 Family history of malignant neoplasm of digestive organs
CPT/HCPCS: 74177; 80053; 85025; 96374; 96375; 99285; J2405; Q9967

== ENCOUNTER → 2022-05-19 23:54 | Outpatient (CLI) | payer MEDICARE, SELFPAY ==
[2022-05-19 19:44] LABS: Alanine Aminotransferase 31 U/L (12-78); Albumin Level 4.2 g/dl (3.5-5.0); Albumin/Globulin Ratio 1.4 (1.1-1.8); Alkaline Phosphatase 93 U/L (38-126); Aspartate Amino Transferase 30 U/L (17-59); Bilirubin,Total 0.5 mg/dl (0.2-1.3); Blood Urea Nitrogen 18 mg/dl (9-20); Calcium 8.9 mg/dl (8.4-10.2); Carbon Dioxide 28 mmol/L (22.0-30.0); Chloride 105 mmol/L (98-107); Chol/HDL Ratio 3.5 (1-3.5); Cholesterol 172 mg/dl (140-200); Estimated Glomerular Filt Rate 86 ml/min (>60); GFR (African American) 104 ML/MIN (>60); Globulin 2.9 g/dL (1.3-3.2); Glucose 127 mg/dl (74-100); HDL Cholesterol 49 mg/dl (40-60); Sodium 136 mmol/L (136-145); Total Protein,Serum 7.1 g/dl (6.3-8.2); Triglycerides 71 mg/dl (30-150); VLDL Cholesterol 14 mg/dL (0-40)
[2022-05-19 19:55] LABS: Direct LDL Cholesterol 99.57 mg/dL (100-129)
[2022-05-19 20:20] LABS: Hemoglobin A1C 7.3 % (4.0-6.0)
== END ==
PROVIDERS: PCP Family Medicine; Visit Provider Family Medicine
DX: E11.9 Type 2 diabetes mellitus without complications (principal); E78.5 Hyperlipidemia, unspecified; Z79.84 Long term (current) use of oral hypoglycemic drugs
CPT/HCPCS: 80053; 80061; 83036

== ENCOUNTER 2022-07-29 18:16 | Emergency (ER) | payer MEDICARE, SELFPAY ==
[2022-07-29 18:48] VITALS: BP 147/93; PULSE 66; RESP 18; TEMP 36.7; O2SAT 97; BMI 38.7
[2022-07-29 18:52] VITALS: PULSE 63; O2SAT 94
[2022-07-29 18:52] LABS: Microscopic, Urine URINE MICROSCOPIC (MICROSCOPIC)
[2022-07-29 19:01] VITALS: BP 122/86; PULSE 68; RESP 18; O2SAT 95
[2022-07-29 19:28] LABS: Appearance,Urine CLEAR (Clear); Bilirubin,Urine Negative (Negative); Blood, Urine Negative (Negative); Color,Urine YELLOW (Yellow); Glucose,Urine (UA) Negative (Negative); Ketones,Urine Negative (Negative); Leukocyte Esterase,Urine Negative (Negative); Nitrate,Urine Negative (Negative); Protein,Urine Negative (Negative); Urobilinogen,Urine 0.2 EU/dl (0.2)
[2022-07-29 19:30] VITALS: BP 124/75; PULSE 60; RESP 20; O2SAT 96
--- NOTE | 2022-07-29 19:43 | HMH.EDGENADL ---
Discharge Plan Disposition Patient Disposition: Home, Self-Care Prescriptions Prescriptions: New doxycycline hyclate 100 mg capsule 100 mg PO BID Qty: 14 0RF No Action gabapentin 800 mg tablet 800 mg PO QID acetaminophen [Tylenol Extra Strength] 500 mg tablet 500 mg PO Q6H PRN (Reason: Pain, Mild) (DME) blood-glucose meter [True Metrix Air Glucose Meter] Kit See Rx Instructions .Route Qty: 1 0RF Rx Instructions: As directed (DME) True Metrix Glucose Test Strip Strip See Rx Instructions .Route Qty: 100 10RF Rx Instructions: As directed (DME) lancets [TRUEplus Lancets] 33 gauge misc See Rx Instructions .Route Qty: 100 10RF Rx Instructions: As directed atorvastatin 40 mg tablet 40 mg PO DAILY Qty: 90 1RF metformin 500 mg tablet extended release 24 hr 500 mg PO DAILY Qty: 90 1RF alcohol swabs [BD Alcohol Swabs] Pads, Medicated 1 pad topical .PRN Qty: 200 10RF Rx Instructions: Wipe finger tip clean with alcohol swab before checking glucose. pantoprazole 40 mg tablet,delayed release (DR/EC) See Rx Instructions .ROUTE .COMPLEX Qty: 90 0RF Dose Instruction: TAKE 1 TABLET EVERY DAY FOR GERD Rx Instructions: TAKE 1 TABLET EVERY DAY FOR GERD duloxetine 60 mg capsule,delayed release(DR/EC) See Rx Instructions .ROUTE .COMPLEX Qty: 90 0RF Dose Instruction: TAKE 1 CAPSULE EVERY DAY FOR MOOD Rx Instructions: TAKE 1 CAPSULE EVERY DAY FOR MOOD valsartan-hydrochlorothiazide 320-25 mg tablet See Rx Instructions .ROUTE .COMPLEX Qty: 90 0RF Dose Instruction: TAKE 1 TABLET EVERY DAY FOR HIGH BLOOD PRESSURE Rx Instructions: TAKE 1 TABLET EVERY DAY FOR HIGH BLOOD PRESSURE metoprolol succinate 100 mg tablet extended release 24 hr See Rx Instructions .ROUTE .COMPLEX Qty: 90 0RF Dose Instruction: TAKE 1 TABLET EVERY DAY Rx Instructions: TAKE 1 TABLET EVERY DAY oxycodone-acetaminophen 1 EACH tablet 1 each PO TID cephalexin 500 mg capsule 500 mg PO Q6H 7 Days Qty: 28 0RF Referrals Follow up/Referrals: Julián Hahn MD [Primary Care Provider] - See instructions Activity Restrictions/Add. Instructions Additional Instructions/Restrictions: Follow-up with Dr. Hahn within the next few days. Return emergency room with any worsening swelling fever or any other concerns within the next 8 hours Clinical Impressions Clinical Impression: Abscess, perirectal Discharge ED Provider: Mathew Raymundo General Adult HPI General Chief complaint: PAIN Stated complaint: Knot below tailbone Time Seen by Provider: 07/29/22 19:00 Mode of Arrival: Ambulatory Source of Information: Patient Limitations: No Limitations Description of Symptoms (Recalled from ER Triage Doc. by RN): Presents from POV d/t knot he noticed to sacrum area yesterday. C/o pain. History of Present Illness HPI narrative: 61-year-old male with history of recurrent perirectal abscesses presents with anal pain and a knot. He is concerned he has a new abscess. No fever chills vomiting abdominal pain diarrhea or any other concerns. He got better last time with p.o. antibiotics per report. Related Data Home Medications Medication Instructions Recorded Confirmed acetaminophen 500 mg tablet 500 mg PO Q6H PRN Pain, Mild 11/06/18 05/19/22 (Tylenol Extra Strength) oxycodone-acetaminophen 5 mg-325 1 each PO TID Pain 06/02/20 05/19/22 mg tablet gabapentin 800 mg tablet 800 mg PO QID Pain 11/04/21 05/19/22 Previous Rx's Medication Instructions Recorded cephalexin 500 mg capsule 500 mg PO Q6H 7 days #28 caps 12/19/21 blood sugar diagnostic (True #100 ea 03/31/22 Metrix Glucose Test Strip) blood-glucose meter (True Metrix #1 ea 03/31/22 Air Glucose Meter kit) lancets 33 gauge (TRUEplus Lancets) #100 ea 03/31/22 atorvastatin 40 mg tablet 40 mg PO DAILY Cholesterol #90 tabs 04/07/22 metformin 500 mg
[2022-07-29 20:00] VITALS: BP 121/74; PULSE 59; RESP 18; TEMP 36.7; O2SAT 96
[2022-07-29 21:01] LABS: Squamous Epithelial Cell,Urine Occasional #/hpf (0-5)
== END 2022-07-29 20:04 | disposition home or self-care (01) ==
PROVIDERS: Emergency Provider Emergency Medicine; PCP Family Medicine
DX: K61.1 Rectal abscess (principal); Z87.891 Personal history of nicotine dependence
CPT/HCPCS: 10060; 81001; 99283; 99284

== ENCOUNTER → 2022-11-16 13:57 | Outpatient (CLI) | payer MEDICARE, SELFPAY ==
[2022-11-16 18:40] LABS: Alanine Aminotransferase 33 U/L (12-78); Albumin Level 4.2 g/dl (3.5-5.0); Albumin/Globulin Ratio 1.4 (1.1-1.8); Alkaline Phosphatase 79 U/L (38-126); Anion Gap 14.2 mEq/L (5-15); Aspartate Amino Transferase 29 U/L (17-59); Bilirubin,Total 0.3 mg/dl (0.2-1.3); Blood Urea Nitrogen 21 mg/dl (9-20); Calcium 9.3 mg/dl (8.4-10.2); Carbon Dioxide 30 mmol/L (22.0-30.0); Chloride 100 mmol/L (98-107); Estimated Glomerular Filt Rate 86 ml/min (>60); GFR (African American) 104 ML/MIN (>60); Glucose 118 mg/dl (74-100); Potassium 4.2 mmoL/L (3.5-5.1); Sodium 140 mmol/L (136-145); Total Protein,Serum 7.2 g/dl (6.3-8.2)
[2022-11-16 19:10] LABS: Thyroid Stimulating Hormone 2.57 uIU/mL (0.465-4.68)
[2022-11-16 19:30] LABS: Vitamin B12 367 pg/mL (239-931)
[2022-11-16 19:54] LABS: Erythrocyte Sedimentation Rate 19 mm/hr (0-20)
[2022-11-21 11:16] LABS: Antinuclear Antibodies (ANA) Negative
== END ==
PROVIDERS: PCP Family Medicine; Visit Provider Family Medicine
DX: E11.9 Type 2 diabetes mellitus without complications (principal); G89.29 Other chronic pain; M54.9 Dorsalgia, unspecified; I10 Essential (primary) hypertension; F41.8 Other specified anxiety disorders; Z79.84 Long term (current) use of oral hypoglycemic drugs
CPT/HCPCS: 80053; 82607; 84443; 85651; 86038

== ENCOUNTER 2024-07-10 15:00 | Outpatient (CLI) | payer MEDICARE, SELFPAY ==
[2024-07-10 19:23] LABS: Alanine Aminotransferase 28 U/L (12-78); Albumin Level 3.8 g/dl (3.5-5.0); Albumin/Globulin Ratio 1.3 (1.1-1.8); Alkaline Phosphatase 96 U/L (38-126); Anion Gap 12.9 mEq/L (5-15); Aspartate Amino Transferase 25 U/L (17-59); Bilirubin,Total 0.5 mg/dl (0.2-1.3); Blood Urea Nitrogen 16 mg/dl (9-20); Calcium 8.9 mg/dl (8.4-10.2); Carbon Dioxide 27 mmol/L (22.0-30.0); Chloride 101 mmol/L (98-107); Estimated Glomerular Filt Rate 76 ml/min (>60); GFR (African American) 92 ML/MIN (>60); Globulin 2.9 g/dL (1.3-3.2); Glucose 184 mg/dl (74-100); Potassium 3.9 mmoL/L (3.5-5.1); Sodium 137 mmol/L (136-145); Total Protein,Serum 6.7 g/dl (6.3-8.2)
[2024-07-10 19:46] LABS: Prostate Specific Ag Screen 0.3 ng/ml (0.0-4.0)
== END 2024-07-10 23:59 | disposition home or self-care (01) ==
LOC: LAB.DROPOF 07-11 12:08
PROVIDERS: PCP Family Medicine; Visit Provider Family Medicine
DX: Z12.5 Encounter for screening for malignant neoplasm of prostate (principal); E11.9 Type 2 diabetes mellitus without complications; Z79.84 Long term (current) use of oral hypoglycemic drugs
CPT/HCPCS: 80053; G0103

== ENCOUNTER 2024-10-19 12:21 | Outpatient (CLI) | payer MEDICARE, SELFPAY ==
--- OUTSIDE RECORDS SUMMARY | 2024-10-22 12:24 | XMS_ITS | Clinical Summary ---
Author Organization [facility] Address [address] [place] [id number] Care Team Providers Care Leather Stripping Machine Operator Name Role Phone Neri Hahn MD Primary Care Provider [phone] Social History Tobacco Use Types Packs/Day Years Used Date Smoking Tobacco: Never Assessed Sex and Gender Information Value Date Recorded Sex Assigned at Not on file Legal Sex Male 10:14 AM EST Gender Identity Not on file Sexual Orientation Not on file Plan of Treatment Health Maintenance Due Date Last Done Comments Cologuard 1961 Colonoscopy 1961 Colorectal Cancer Screening 1961 FIT 1961 Lipid Screening 11/03/1979 Tetanus Vaccination (Every 10 Years) 11/03/1979 Hepatitis C Virus (HCV) Screening 1982 Pneumococcal Vaccine: 50+ Years (1 of 1 - PCV) 012 Zoster-RZV(Shingrix) (1 of 2) 11/03/2011 COVID-19 Vaccine (1 - 2023- season) 2023 Depression Screening 03/28/2024 Influenza Vaccination (#1) 2024 RSV Vaccines (1 - 1-dose 75+ series) 2036 Insurance WC SELF [employer] Care Teams Leather Stripping Machine Operator Relationship Specialty Start Date End Date Neri Hahn MD [address] [place] [id number] PCP - General Family Medicine 04/24/18
--- OUTSIDE RECORDS SUMMARY | 2024-10-22 12:24 | XMS_ITS | Clinical Summary ---
Author Organization [facility] Address [address] [place] [id number] Phone Care Team Providers Care Convenience Store Manager Name Role Phone Sebas Hahn MD Primary Care Provider [phone] Allergies No known active allergies Medications No known medications Social History Tobacco Use Types Packs/Day Years Used Date Smoking Tobacco: Never Sex and Gender Information Value Date Recorded Sex Assigned at Not on file Legal Sex Male 4:42 AM EDT Gender Identity Not on file Sexual Orientation Not on file Obstetrics History Last Filed Vital Signs Vital Sign Reading Time Taken Comments Blood Pressure 150/90 10/20/2011 10:55 PM EDT Pulse 61 10/20/2011 10:55 PM EDT Temperature 36.7 C (98 F) 10/20/2011 10:55 PM EDT Respiratory Rate 16 10/20/2011 10:55 PM EDT Oxygen Saturation 99% 10/20/2011 10:55 PM EDT Inhaled Oxygen Concentration - - Weight 77.1 kg (170 lb) 10/20/2011 10:55 PM EDT Height 165.1 cm (5' 5 ) 10/20/2011 10:55 PM EDT Body Mass Index 28.29 10/20/2011 10:55 PM EDT Plan of Treatment Health Maintenance Due Date Last Done Comments Annual Wellness Exam 1964 Hepatitis C Screening 11/03/1979 DTaP/TDaP/Td (1 - Tdap) 1980 Cologuard 2006 Colon Cancer Screening 2006 Colonoscopy 2006 FIT 2006 Sigmoidoscopy 2006 Virtual Colonography 2006 Pneumococcal Vaccine 50+ (1 of 1 - PCV) 11/03/2011 Zoster (1 of 2) 11/03/2011 COVID-19 Vaccine (2023-2 5 season) 2023 Influenza Vaccine (#1) 2024 Hepatitis B Vaccine Aged Out No longe r eligible based on patient's age to complete this topic Meningococcal B Vaccine Aged Out No l onger eligible based on patient's age to complete this topic Insurance [employer] on file * Guarantor: Andre Schmitz Account Type Relation to Patient Date of Phone Billing Address [place] Personal Family Self Care Teams Convenience Store Manager Relationship Specialty Start Date End Date Sebas Hahn MD [address] [facility] [address] [place] [id number] PCP - General Psychiatry & Neurology-Neurology 10/20/11
--- OUTSIDE RECORDS SUMMARY | 2024-10-22 12:24 | XMS_ITS | Continuity of Care Document ---
Author Organization [facility], [place] Address [address] [place] [address] Care Team Providers Care Hearing And Speech Assistant Name Role Phone Julián JACKSON Primary Care Provider Julián JACKSON Referring Provider Assessment Encounter Date Assessment Date Assessment LastModified by Organization Details LastModified Time 10/02/2024 10/02/2024 Pain History: 63-year-old male here for follow-up of his chronic low back as well as radiating leg symptoms. He did recently complete a therapeutic lumbar TFESI. He does feel this helped about 50% however he is beginning to experience the severe burning, shooting pain in the back all the way to the feet. He did ask about medication adjustments to target this pain as it seems to be getting worse and limits him on a daily basis. In general he feels his overall pain is progressing. I did recommend an updated lumbar MRI. He states he does want to find out his cost first before proceeding. He also requested a Medrol Dosepak today for the acute on chronic radiculitis. This is an established patient with chronic pain that has been treated here since 2020. Past Medical History: GERD, hypertension, peptic ulcer disease Imaging: Lumbar MRI without contrast October 2018: .L1-L2: Unremarkable L2-3: Mild to space narrowing. L3-4: Mild to space narrowing. Diffuse disc bulge flattens the ventral thecal sac. Mild to moderate facet and ligamentum flavum hypertrophy. Central canal measures 10 mm AP. L4-5: Mild to space narrowing. Mild diffuse disc bulge and moderate facet and ligament flavum hypertrophy. Central canal measures 10 mm AP. Mild compression of the left L4 nerve root. L5-S1: Mild to space narrowing and disc desiccation. Minimal disc bulge and facet hypertrophy without canal or foraminal stenosis. Surgical evaluation/ history: [facility] 2018 not a candidate Conservative Treatments: Patient has failed conservative measures for greater than 6 weeks including physical therapy/chiropr actic care/spinal manipulation, a monitored home exercise program, and/or NSAIDs within the last six months. Interventional treatment history: Nothing recent Previous analgesics: Cyclobenzaprine 10mg TID stopped due to sedation Tizanidine as needed - not hepful Gabapentin ineffective Current analgesics: Percocet 7.5/325 3 times daily Lyrica 100 mg 3 times daily started 7025 Compliance Monitoring: No UDS today Most recent UDS confirmation from 07/31/2024 was appropriate Nadeem reviewed and is appropriate Based on the patients urine confirmation (LCMS) results, the patient's overall risk level will remain the same. I would consider the patient to be moderate risk based on these new results. In response to the patient's risk level and urine confirmation I plan to continue the patient's opioid prescription. He will follow-up in 2 months for medication management. Anticoagulant/A ntiplatelet Medications: Denies [email or web address] Not available 10/02/2024 14:28:37 Plan of Treatment Reminders Order Date Submit Date Provider Last Modified By Organization Details Last Modified Time Details Appointments FOLLOW UP 15 2024 09:30A Chiquita Hart APRN Not available Not available Not available Lab None recorded . Referral None recorded . Procedures None recorded . Surgeries None recorded . Imaging None recorded . Medication Orders oxycodon e-acetam inophen 7.5 mg-325 mg tablet 2024 025 [facility], [address] [facility] [place], [address], 10/08/2024 09:05:59 oxycodon e-acetam inophen 7.5 mg-325 mg tablet 2024 025 [facility], [address] [facility] [place], [address], 10/02/2024 11:26:36 Lyrica 100 mg capsule 2024 025 [facility], [address] [facility], [place], [address], 10/11/2024 13:37:21 Medrol (Luis Enrique) 4 mg tablets in a dose pack 2024 025 [facility], [address], [facility], [place], [address], 10/02/2024 10:33:27 Patient TargetsNo targets recorded. Patient InstructionsNo instructions recorded. Reason for Referral None Reported. Results Created Date Observation Date Name Description Value Unit Range Abnormal Flag Note LastModifiedBy Organization Detail LastModifiedTime 09/08/19 25 epidu ral stero id injec tion, lumba r trans karyna inal (PROC ) No observ ation record ed. [email or web address] Not Available 09/07 10:18:46 Result Notes None recorded. Problems Name Problem SNOMED Code Status Onset Date Resolution Date Notes Provider Name and Address Organization Details Recorded Time Degeneration of lumbar intervertebra l disc 07830886 Active 2019 Mirella Baljit [facility] 0 10:26:45 Long-term drug therapy Active 2020 Jesse Pires MD [address] [place] [address], [phone] , [facility] 1 14:28:18 Lumbar radiculopathy 123619937 Active 2021 ITA GERMAN NP [address] [place] [address], [phone] , [facility] 2 09:35:56 Myofascial pain 111656130 Active 2022 jhonatan mar [facility] 3 10:59:49 Chronic pain 21255907 Active 2023 Elena Mejia [facility] 4 10:43:27 Problem Notes None recorded. Procedures Surgical History Date Name Laterality Status Provider Name and Address Organization Details Recorded Time 09/06/19 25 Lumbar Transforaminal Epidural Steroid Injection (1 Level Bilateral): completed MONICA SCHUSTER MD [address] [place] [address], [phone], [facility] 09/05/2024 11:31:54 04/25/19 25 Lumbar Transforaminal Epidural Steroid Injection (1 Level Bilateral): completed Cinthia Neumann [facility] 04/25/2024 14:20:24 01/13/20 21 Caudal Epidural Steroid Injection completed Jesse Pires MD [address] [place] [address], [phone], [facility] 01/12/2021 10:10:34 06/17/19 21 Lumbar Transforaminal Epidural Steroid Injection (2 Levels Unilateral): completed Jesse Pires MD [address] [place] [address], [phone], [facility] 06/16/2020 14:33:11 02/20/20 20 Lumbar Transforaminal Epidural Steroid Injection (1 Level Bilateral): completed Jesse Pires MD [address] [place] [address], [phone], [facility] 02/20/2020 09:56:29 01/02/20 20 Lumbar Transforaminal Epidural Steroid Injection (1 Level Bilateral): completed Jesse Pires MD [address] [place] [address], [phone], [facility] 01/02/2020 11:35:31 12/27/19 17 Appendectomy completed Mirella Smiley [facility] 05/29/2019 10:05:57 Orthopedic Surgery completed Mirella ulloa [facility] 05/29/2019 10:05:48 Imaging Results None recorded. Procedure Notes None recorded. Medical Equipment None Reported. Allergies No known drug allergies Medications Name Sig Start Date Stop Date Status Note LastModified by Organization Details LastModified Time cyclobenzap rine 10 mg tablet TAKE 1 TABLET BY MOUTH 3 TIMES A DAY FOR 30 DAYS. 12/13 completed Not Available Not Available Not Available atorvastati n 40 mg tablet TAKE 1 TABLET BY MOUTH ONCE DAILY. MUST MAKE APPOINTME NT active Not Available Not Available No t Available promethazin e-DM 6.25 mg-15 mg/5 mL oral syrup 05/28 completed Not Available Not Available Not Available gabapentin 600 mg tablet Take 1 tablet 3 times a day by oral route as directed for 30 days. 03/26 completed Not Available Not Available Not Available doxycycline hyclate 100 mg capsule TAKE 1 CAPSULE BY MOUTH TWICE A DAY 10/13 completed Not Available Not Available Not Available azithromyci n 250 mg tablet TAKE 2 TABLETS BY MOUTH ON DAY 1 THEN TAKE 1 TABLET BY MOUTH DAILY ON DAYS 2-5. 09/22 completed Not Available Not Available Not Available tizanidine 4 mg tablet Take 1 tablet every day by oral route at bedtime for 30 days. 05/18 completed Not Available Not Available Not Available benzonatate 200 mg capsule TAKE 1 CAPSULE BY MOUTH 3 TIMES DAILY NEEDED FOR COUGH 10/22 completed Not Available Not Available Not Available meloxicam 15 mg tablet Take 1 tablet every day by oral route for 30 days. 06/26 completed Not Available Not Available Not Available prednisone 20 mg tablet 05/28 completed Not Available Not Available Not Available metoprolol succinate ER 100 mg tablet,exte nded release 24 hr TAKE 1 TABLET BY MOUTH DAILY active Not Available Not Available No t Available valsartan 160 mg-hydrochl orothiazide 12.5 mg tablet Qd 10/23 completed Not Available Not Available Not Available olanzapine 5 mg tablet TAKE 1 TABLET BY MOUTH DAILY 11/19 completed Not Available Not Available Not Available olanzapine 2.5 mg tablet 05/22 completed Not Available Not Available Not Available risperidone 2 mg tablet TAKE 1 TABLET BY MOUTH ONCE DAILY AT BEDTIME NIGHTLY active Not Available Not Available No t Available oxycodone-a cetaminophe n 5 mg-325 mg tablet TAKE 1 TABLET EVERY 8 HOURS BY ORAL ROUTE FOR 30 DAYS. * DNF 03-16-2310/02 completed Not Available Not Available Not Available gabapentin 800 mg tablet Take 1 tablet 4 times a day by oral route as directed for 90 days. 2024 active Not Available Not Available Not Avai lable hydrocodone 7.5 mg-acetamin ophen 325 mg tablet Take 1 tablet 3 times a day by oral route as directed for 30 days. 06/18 completed Not Available Not Available Not Available cephalexin 500 mg capsule 08/11 completed Not Available Not Available Not Available pantoprazol e 40 mg tablet,hay yed release TAKE 1 TABLET BY MOUTH DAILY active Not Available Not Available No t Available gabapentin 300 mg capsule Take 1 capsule 3 times a day by oral route as directed. 08/21 completed Not Available Not Available Not Available oxycodone-a cetaminophe n 7.5 mg-325 mg tablet TAKE 1 TABLET BY MOUTH 3 TIMES DAILY. DNF UNTIL 10/08/24* active Not Available Not Available No t Available methylpredn isolone 4 mg tablets in a dose pack TAKE 6 TABLETS ON DAY 1,THEN 5 TABS ON DAY 2,THEN 4 TABS ON DAY 3, 3 TABS ON DAY 4,THEN 2 TABS ON DAY 5 AND 1 TAB ON DAY 6. *TAKE WITH FOOD* active Not Available Not Available No t Available albuterol sulfate HFA 90 mcg/actuati on aerosol inhaler 11/19 completed Not Available Not Available Not Available [place] 5 mg-325 mg tablet Take 1 tablet 3 times a day by oral route as needed. 07/23 completed Not Available Not Available Not Available cefdinir 300 mg capsule 05/28 completed Not Available Not Available Not Available metformin ER 500 mg tablet,exte nded release 24 hr TAKE 1 TABLET BY MOUTH ONCE DAILY active Not Available Not Available No t Available amoxicillin 875 mg-potassiu m clavulanate 125 mg tablet TAKE 1 TABLET BY MOUTH TWICE DAILY FOR 7 DAYS active Not Available Not Available No t Available aripiprazol e 10 mg tablet TAKE 1 TABLET BY MOUTH ONCE DAILY FOR MOOD active Not Available Not Available No t Available aripiprazol e 5 mg tablet TAKE 1 TABLET BY MOUTH DAILY 11/19 completed Not Available Not Available Not Available duloxetine 60 mg capsule,del ayed release TAKE 2 CAPSULES BY MOUTH ONCE DAILY. active Not Available Not Available No t Available pregabalin 100 mg capsule Take 1 capsule 3 times a day by oral route for 90 days. 2024 active Not Available Not Available Not Avai lable pregabalin 150 mg capsule 06/18 completed Not Available Not Available Not Available valsartan 320 mg-hydrochl orothiazide 25 mg tablet TAKE 1 TABLET BY MOUTH ONCE DAILY. MUST MAKE APPOINTME NT active Not Available Not Available No t Available aripiprazol e 2 mg tablet TAKE 1 TABLET BY MOUTH DAILY 10/22 completed Not Available Not Available Not Available quetiapine 50 mg tablet 04/24 completed Not Available Not Available Not Available GaviLyte-G 236 gram-22.74 gram-6.74 gram-5.86 gram oral solution TAKE DIRECTED, 240 ML BY MOUTH EVERY 10 MINUTES FOR COLONOSCO PY. SEE MAILED INSTRUCTI ONS active Not Available Not Available No t Available TRUEplus Lancets 33 gauge active Not Available Not Available Not Available True Metrix Glucose Test Strip active Not Available Not Available N ot Available True Metrix Air Glucose Meter kit active Not Available Not Available No t Available Flublok Quad (PF) 180 mcg (45 mcg x 4)/0.5 mL IM syringe 01/21 completed Not Available Not Available Not Available DropSafe Alcohol Prep Pads active Not Available Not Available No t Available Vitals Date Recorded Body height Body mass index (BMI) Body weight Pain severity - 0-10 verbal numeric rating [Score] - Reported Provider Name and Address Organization Details Last Updated DateTime 10/02/2024 165.1 cm 35.8 kg/m2 37150.36 g 8 Vin Jaquez [facility] 10/02/2024 09:16:55 Social History Question Answer Notes LastModified by Organizat ion Details LastModified Time Tobacco Smoking Status Former Smoker Joanne egan [facility] 10/24/2019 08:45:48 Do You Have An Advance Directive? No [email or web address] Information n ot available 12/14/2021 What Is Your Level Of Caffeine Consumption? None Information not available 05/29/2019 How Much Tobacco Do You Chew? None Information not available 05/29/2019 In The 14 Days Before Symptom Onset, Have You Had Close Contact With A Laboratory-confirm ed COVID-19 While That Case Was Ill? No [email or web address] Information n ot available 11/19/2020 In The 14 Days Before Symptom Onset, Have You Had Close Contact With A Person Who Is Under Investigation For COVID-19 While That Person Was Ill? No [email or web address] Information not available 11/19/2020 Have You Been To An Area Known To Be High Risk For COVID-19? No Information not available 11/19/2020 Are You Deaf Or Do You Have Serious Difficulty Hearing? No Information not available 05/29/2019 Which Illicit Or Recreational Drugs Have You Used? Denies Information not available 05/29/2019 Have You Processed Blood Or Body Fluids From An Ebola Virus Disease Patient Without Appropriate PPE? No [email or web address] Information not available 11/19/2020 Do You Reside In Or Have You Traveled To An Area Where Ebola Virus Transmission Is Active? No Information not available 11/19/2020 Education 10 Information no t available 11/19/2020 What Is The Highest Grade Or Level Of School You Have Completed Or The Highest Degree You Have Received? [id number] [email or web address] Information not available 11/19/2020 Hard Of Hearing Or Deaf In One Or Both Ears? No [email or web address] Information not available 11/19/2020 Prescription Drug Abuse No Information not available 05/29/2019 Disability No Information no t available 05/29/2019 History Of Sexual Abuse No Information not available 05/29/2019 Marital Status Single [email or web address] Informatio n not available 11/19/2020 Do You Have A Medical Power Of I O Psychologist? No [email or web address] Information not available 06/05/2024 What Was The Date Of Your Most Recent Tobacco Screening? 10/02/2024 [email or web address] Information not available 10/02/2024 What Is Your Relationship Status? Single Information not available 11/19/2020 How Much Tobacco Do You Smoke? No Information not available 05/29/2019 General Stress Level High [email or web address] Information not available 11/19/2020 How Many Years Have You Smoked Tobacco? 30 Information not available 06/15/2021 Do You Have Difficulty Walking Or Climbing Stairs? Yes Information not available 05/29/2019 Sex: Unknown Functional Status Question Answer Note LastModified by Organizat ion Details LastModified Time What is your level of alcohol consumption? Occasional Information not available 05/29/2019 Do you or have you ever used smokeless tobacco? Never used smokeless tobacco [email or web address] Information not available 11/19/2020 Are you able to walk? [email or web address] Information not available 05/29/2019 Do you have difficulty doing errands alone? 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 Yes Information not available 05/29/2019 Do you or have you ever used e-cigarettes or vape? Never used electronic cigarettes Information not available 11/19/2020 What is your exercise level? None Information not available 05/29/2019 Mental Status Question Answer Note LastModified by Organization D etails LastModified Time Do you have difficulty concentrating, remembering or making decisions? No Information no t available 05/29/2019 Family History Relationship Description Onset Age of this Age Resolved Age Notes LastModified by Organization Details LastModified Time Mother Family history of diabetes mellitus [email or web address] Not available 2020 08:52:52 Paternal Grandfather Family history of malignant neoplasm [email or web address] Not available 2020 08:52:52 Unspecified Relation Heart disease Not available 2019 09:14:42 Medical History Condition Response Bipolar Disease N Coronary Artery Disease N Gout N Seizure Disorder N Thyroid Disease N Atrial Fibrillation N Hernia N Head Trauma/Injury N COPD N Depression N Anxiety Disorder N Acid Reflux (GERD) Y Cancer N Skin Disorder N Stroke N High Cholesterol N Liver Disease N Rheumatoid Arthritis N Fibromyalgia N Headaches N Autoimmune Disease N Kidney Disease N Osteoarthritis N Neurosurgery N DVT N Peptic Ulcer Disease Y Anemia N Heart Attack ([place]) N Diabetes N Cardiomyopathy N Bleeding Disorder N CHF N AIDS/HIV N Inflammatory Bowel Disease N Dementia N Asthma N Substance Abuse N Sleep Apnea N Hepatitis N Heart Disease N Pulmonary Embolism N Chronic Low Back Pain N Hypertension Y Osteoporosis N Past Encounters Encounter ID Performer Location Encounter Start Date Encounter Closed Date Diagnosis/Indication Diagnosis SNOMED-CT Code Diagnosis ICD10 Code Diagnosis Note [id number] MONICA SCHUSTER MD [address] [place] [address] 09/05/2024 10:02:57 09/05/2024 11:26:41 Lumbar radiculopathy 469133313 M54.16 [id number] MONICA SCHUSTER MD [place] [address] [place] [address] 10/02/2024 09:08:45 10/02/2024 09:39:36 Lumbar radiculopathy 012194715 M54.16 Patient did initially receive 50% relief with lumbar TFESI performed last month. He feels that this is wearing off and he is experienci ng the severe pain in his back and down the legs. He describes it as burning, shooting, sharp. I discussed with him it does appear that his neuropathi c pain is his worst component. I would recommend rotating off the gabapentin as he is on the max dose without much relief. He was agreeable to this. I will start Lyrica 100 mg 3 times daily to see if we can better cover this pain. I did suggest an updated lumbar MRI to see if there is worsening pathology. He states he does want to check his cost first before proceeding . No changes made to his oxycodone regimen. He continues to report that it does allow him to complete daily activities without side effect. I did approve a Medrol Dosepak as it has been almost a year since he last received this. He was advised to stop this if his blood sugars are close to 250 or above. Chronic pain [id number] G8 9.29 Health Concerns Section Related Observation LastModified by Organization Detai ls LastModified Time None Recorded Concern Status LastModified by Organization Details LastModified Time None Recorded Payers Encounter Date Sequence Insurance Name Policy Number Policy Guthrie Covered Member ID Guthrie Member ID Guarantor Name 10/02/2024 1 [employer] (MEDICARE REPLACEMENT/A DVANTAGE - PPO) Andre Schmitz [id number] Andre Schmitz
--- OUTSIDE RECORDS SUMMARY | 2024-10-22 12:24 | XMS_ITS | Continuity of Care Document ---
Author Organization [facility], [place] Address [address] [place] [address] Care Team Providers Care Transportation Department Head Name Role Phone Julián JACKSON Primary Care Provider Julián JACKSON Referring Provider Assessment No assessment recorded. Plan of Treatment Reminders Order Date Submit Date Provider Last Modified By Organization Details Last Modified Time Details Appointments FOLLOW UP 15 2024 09:30A Chiquita Hart APRN Not available Not available Not available Lab None recorded . Referral None recorded . Procedures None recorded . Surgeries None recorded . Imaging None recorded . Medication Orders None recorded . Patient TargetsNo targets recorded. Patient InstructionsNo instructions recorded. Reason for Referral None Reported. Results Created Date Observation Date Name Description Value Unit Range Abnormal Flag Note LastModifiedBy Organization Detail LastModifiedTime 09/08/19 25 epidu ral stero id injec tion, lumba r trans karyna inal (PROC ) No observ ation record ed. [email or web address] Not Available 09/07 10:18:46 Result Notes None recorded. Problems Name Problem SNOMED Code Status Onset Date Resolution Date Notes Provider Name and Address Organization Details Recorded Time Degeneration of lumbar intervertebra l disc 74390473 Active 2019 Mirella egan [facility] 0 10:26:45 Long-term drug therapy Active 2020 Jesse Pires MD [address] [place] [address], [phone] [facility] 1 14:28:18 Lumbar radiculopathy 143155008 Active 2021 ITA GERMAN NP [address] [place] [address], [phone] , [facility] 2 09:35:56 Myofascial pain 453813624 Active 2022 jhonatan mar [facility], [facility] 3 10:59:49 Chronic pain 83051115 Active 2023 Elena Mejia null, [facility] 4 10:43:27 Problem Notes None recorded. Procedures Surgical History Date Name Laterality Status Provider Name and Address Organization Details Recorded Time 09/06/19 25 Lumbar Transforaminal Epidural Steroid Injection (1 Level Bilateral): completed MONICA SCHUSTER MD [address] [place] [address], [phone], [facility] 09/05/2024 11:31:54 04/25/19 25 Lumbar Transforaminal Epidural Steroid Injection (1 Level Bilateral): completed Cinthia Neumann [facility] 04/25/2024 14:20:24 01/13/20 21 Caudal Epidural Steroid Injection completed Jesse Pires MD [address] [place] [address], [phone], [facility] 01/12/2021 10:10:34 06/17/19 21 Lumbar Transforaminal Epidural Steroid Injection (2 Levels Unilateral): completed Jesse Pires MD [address] [place] [address], [phone], [facility] 06/16/2020 14:33:11 02/20/20 20 Lumbar Transforaminal Epidural Steroid Injection (1 Level Bilateral): completed Jesse Pires MD [address] [place] [address], [phone], [facility] 02/20/2020 09:56:29 01/02/20 20 Lumbar Transforaminal Epidural Steroid Injection (1 Level Bilateral): completed Jeses Pires MD [address] [place] [address], [phone], [facility] 01/02/2020 11:35:31 12/27/19 17 Appendectomy completed Mirella Smiley [facility] 05/29/2019 10:05:57 Orthopedic Surgery completed Mirella ulloa [facility] 05/29/2019 10:05:48 Imaging Results None recorded. Procedure [...] completed Not Available Not Available Not Available [place] 5 mg-325 mg tablet Take 1 tablet [...] Available Not Available No t Available Vitals None Recorded Social History Question Answer Notes LastModified by Organizat ion Details LastModified Time Tobacco Smoking Status Former Smoker RADHA Wilson - [facility] 10/24/2019 08:45:48 Do You Have An Advance Directive? No [email or web address] Information n ot available 12/14/2021 What Is Your Level Of Caffeine Consumption? None Information not available 05/29/2019 How Much Tobacco Do You Chew? None Information not available 05/29/2019 In The 14 Days Before Symptom Onset, Have You Had Close Contact With A Laboratory-confirm ed COVID-19 While That Case Was Ill? No Information n ot available 11/19/2020 In The 14 Days Before Symptom Onset, Have You Had Close Contact With A Person Who Is Under Investigation For COVID-19 While That Person Was Ill? No [email or web address] Information not available 11/19/2020 Have You Been To An Area Known To Be High Risk For COVID-19? No [email or web address] Information not available 11/19/2020 Are You Deaf Or Do You Have Serious Difficulty Hearing? No Information not available 05/29/2019 Which Illicit Or Recreational Drugs Have You Used? Denies Information not available 05/29/2019 Have You Processed Blood Or Body Fluids From An Ebola Virus Disease Patient Without Appropriate PPE? No [email or web address] Information not available 11/19/2020 Do You Reside In Or Have You Traveled To An Area Where Ebola Virus Transmission Is Active? No [email or web address] Information not available 11/19/2020 Education 10 Information no t available 11/19/2020 What Is The Highest Grade Or Level Of School You Have Completed Or The Highest Degree You Have Received? [id number] Information not available 11/19/2020 Hard Of Hearing Or Deaf In One Or Both Ears? No [email or web address] Information not available 11/19/2020 Prescription Drug Abuse No Information not available 05/29/2019 Disability No Information no t available 05/29/2019 History Of Sexual Abuse No Information not available 05/29/2019 Marital Status Single [email or web address] Informatio n not available 11/19/2020 Do You Have A Medical Power Of Tobacco Cutter? No [email or web address] Information not available 06/05/2024 What Was The Date Of Your Most Recent Tobacco Screening? 10/02/2024 [email or web address] Information not available 10/02/2024 What Is Your Relationship Status? Single Information not available 11/19/2020 How Much Tobacco Do You Smoke? No Information not available 05/29/2019 General Stress Level High [email or web address] Information not available 11/19/2020 How Many Years [...] used smokeless tobacco? Never used smokeless tobacco Information not available 11/19/2020 Are you able to walk? [email or web address] Information not available 05/29/2019 Do you have difficulty doing errands alone? 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 Yes Information not available 05/29/2019 Do you or have you ever used e-cigarettes or vape? Never used electronic cigarettes [email or web address] Information not available 11/19/2020 What is your [...] Bipolar Disease N Coronary Artery Disease N Seizure Disorder N Gout N Atrial Fibrillation N Thyroid Disease N Hernia N Head Trauma/Injury N COPD N Depression N Anxiety Disorder N Acid Reflux (GERD) Y Cancer N Stroke N Skin Disorder N High Cholesterol N Liver Disease N Rheumatoid Arthritis N Headaches N Fibromyalgia N Kidney Disease N Autoimmune Disease N Osteoarthritis N Neurosurgery N DVT N Peptic Ulcer Disease Y Anemia N Heart Attack (LA) N Diabetes N Cardiomyopathy N Bleeding Disorder [...] SNOMED-CT Code Diagnosis ICD10 Code Diagnosis Note [id number] MONICA SCHUSTER MD [place] [address] [facility] [address] [place] [address] 09/05/2024 10:02:57 09/05/2024 11:26:41 Lumbar radiculopathy 976241368 M54.16 Health Concerns Section Related Observation LastModified by Organization Detai ls LastModified Time None Recorded Concern Status LastModified by Organization Details LastModified Time None Recorded Payers Encounter Date Sequence Insurance Name Policy Number Policy Guthrie Covered Member ID Guthrie Member ID Guarantor Name 09/05/2024 1 [employer] - [employer] (MEDICARE REPLACEMENT/A DVANTAGE - PPO) Andre Schmitz [id number] Andre Schmitz
--- OUTSIDE RECORDS SUMMARY | 2024-10-22 12:25 | XMS_ITS | Data Portability ---
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 Schmitz is a 63-year-old male here today with ongoing complaints of lower back and leg pain. The pain extends from his lower back down the back bilateral legs to his feet. His pain fluctuates, made tremendously worse with overexertion and prolonged standing/walking . His symptoms have improved significantly since last visit as he recently completed a bilateral lumbar TFESI. He is aware that he may repeat this injection every 12 weeks as needed. This is an established patient with chronic [...] canal or foraminal stenosis. Surgical evaluation/ history: Nothing for the lower back Conservative Treatments: Patient has failed conservative measures for greater than 6 weeks including physical therapy/chiropra ctic care/spinal manipulation, a monitored home exercise program, and/or NSAIDs within the last six months. Interventional treatment history: Nothing recent Previous analgesics: Cyclobenzaprine 10mg TID stopped due to sedation Tizanidine as needed - not hepful Current analgesics: Percocet 7.5/325 3 times daily Gabapentin 800mg 4 times daily Compliance Monitoring: No UDS today Most recent UDS confirmation from 04/10/2024 was appropriate Dawson reviewed and is appropriate He is considered to be at moderate risk He will follow-up in 2 months for medication management. Anticoagulant/An tiplatelet Medications: Denies [email or web address] Not available 06/05/2024 10:16:03 07/31/2024 07/31/2024 Pain History: Mr. Schmitz is a 63-year-old male with chronic lower back and leg pain. Unfortunately, his symptoms are worse today. He experiences pain that radiates down bilateral lower extremities and feet. The pain fluctuates between moderate and severe and is described as an aching, sharp, stabbing, burning and throbbing. The symptoms are aggravated with overexertion, prolonged standing and walking and work activity. He would like to repeat a lumbar epidural injection as soon as possible. This is an established patient with chronic [...] canal or foraminal stenosis. Surgical evaluation/ history: Nothing for the lower back Conservative Treatments: Patient has failed conservative measures for greater than 6 weeks including physical therapy/chiropra ctic care/spinal manipulation, a monitored home exercise program, and/or NSAIDs within the last six months. Interventional treatment history: Nothing recent Previous analgesics: Cyclobenzaprine 10mg TID stopped due to sedation Tizanidine as needed - not hepful Current analgesics: Percocet 7.5/325 3 times daily Gabapentin 800mg 4 times daily Compliance Monitoring: UDS today Most recent UDS confirmation from 04/10/2024 was appropriate Dawson reviewed and is appropriate He is considered to be at moderate risk He will follow-up in 2 months for medication management. Anticoagulant/An tiplatelet Medications: Nabila salinas Not available 07/31/2024 12:26:45 10/02/2024 10/02/2024 Pain History: 63-year-old male here [...] canal or foraminal stenosis. Surgical evaluation/ history: [facility] 2018 not a candidate Conservative Treatments: Patient has failed conservative measures for greater than 6 weeks including physical therapy/chiropra ctic care/spinal manipulation, a monitored home exercise program, [...] recent UDS confirmation from 07/31/2024 was appropriate Dawson reviewed and is appropriate Based on the patients urine confirmation (LCMS) results, the patient's overall risk level will remain the same. I would consider the patient to be moderate risk based on these new results. In response to the patient's risk level and urine confirmation I plan to continue the patient's opioid prescription. He will follow-up in 2 months for medication management. Anticoagulant/An tiplatelet Medications: Nabila [email or web address] Not available 10/02/2024 14:28:37 Plan of Treatment Reminders Order Date Submit Date Provider Last Modified By Organization Details Last Modified Time Details Appointments FOLLOW UP 15 2024 09:30A Chiquita Hart, FELIX Not available Not available Not available Lab drug screen, urine - Qualitati ve LCMS Screen Panel 2024 025 [facility], [facility], [address] [place] [address], [id number], 08/03/2024 13:15:02 Referral None recorded. Procedures epidural steroid injection , lumbar transfora jero (PROC) - BILATERAL LUMBAR TFESI L5-S1 2024 025 [email or web address] Not available 08/03/2024 13:25:02 Surgeries None recorded. Imaging None recorded. Medication Orders oxycodone -acetamin ophen 7.5 mg-325 mg tablet 2024 025 [facility], [address] [place], [address], 10/08/2024 09:05:59 oxycodone -acetamin ophen 7.5 mg-325 mg tablet 2024 025 [facility], [address] [place], [address], 10/02/2024 11:26:36 Lyrica 100 mg capsule 2024 025 [facility], [address], [place], [address], 10/11/2024 13:37:21 Medrol (Luis Enrique) 4 mg tablets in a dose pack 2024 025 [facility], [address] [facility] [address], [place], [address], 10/02/2024 10:33:27 gabapenti n 800 mg tablet 2024 025 [facility], [address] [place], [address], 10/02/2024 09:50:09 oxycodone -acetamin ophen 7.5 mg-325 mg tablet 2024 025 [facility], [address], [place], [address], 08/10/2024 09:13:06 oxycodone -acetamin ophen 7.5 mg-325 mg tablet 2024 025 [facility], [address], [place], [address], 09/08/2024 09:53:17 gabapenti n 800 mg tablet 2024 025 [facility], [address] [place], [address], 06/05/2024 10:17:34 oxycodone -acetamin ophen 7.5 mg-325 mg tablet 2024 025 [facility], [address], [place], [address], 06/05/2024 09:34:47 oxycodone -acetamin ophen 7.5 mg-325 mg tablet 2024 025 [facility], [address], [address], [place], [address], 07/11/2024 10:19:55 Patient TargetsNo targets recorded. Patient Instructions Encounter Date Encounter Id Patient Instructions Last Modified By Organization Details Last Modified Time 07/31/2024 [id number] advance directives: care instructions brad Not available 07/31/2024 12:29:12 depression and chronic disease: care instructions [email or web address] Not available 07/31/2024 12:29:12 A healthy lifestyle: care instructions [email or web address] Not available 07/31/2024 12:29:12 safe use of opioid pain medicine: care instructions [email or web address] Not available 07/31/2024 12:29:12 Learning About Benefits of Quitting Smoking [email or web address] Not available 07/31/2024 12:29:12 Reason for Referral None Reported. Results Created Date Observation Date Name Description Value Unit Range Abnormal Flag Note LastModifiedBy Organization Detail LastModifiedTime 09/08/19 25 epidu ral stero id injec tion, lumba r trans karyna inal (PROC ) No observ ation record ed. [email or web address] Not Available 09/07 10:18:46 Result Notes None recorded. Problems Name Problem SNOMED Code Status Onset Date Resolution Date Notes Provider Name and Address Organization Details Recorded Time Degeneration of lumbar intervertebra l disc 91068300 Active 2019 Mirella Smiley null, [place] - [facility] 0 10:26:45 Long-term drug therapy Active 2020 Jesse Pires MD [address] [place] [address], [phone] , [facility] 1 14:28:18 Lumbar radiculopathy 900536367 Active 2021 ITA GERMAN NP [address] [place] [address], [phone] , [facility] 2 09:35:56 Myofascial pain 802352823 Active 2022 jhonatan mar null, [place] - [facility] 3 10:59:49 Chronic pain 36170754 Active 2023 [facility] 10:43:27 Problem Notes None recorded. Procedures Surgical History Date Name Laterality Status Provider Name and Address Organization Details Recorded Time 09/06/19 25 Lumbar Transforaminal Epidural Steroid Injection (1 Level Bilateral): completed MONICA SCHUSTER MD [address] [place] [address], [phone], [facility] 09/05/2024 11:31:54 04/25/19 25 Lumbar Transforaminal Epidural Steroid Injection (1 Level Bilateral): completed Cinthia Neumann [facility] 04/25/2024 14:20:24 01/13/20 21 Caudal Epidural Steroid Injection completed Jesse Pires MD [address] [place] [address], [phone], [facility] 01/12/2021 10:10:34 06/17/19 21 Lumbar Transforaminal Epidural Steroid Injection (2 Levels Unilateral): completed Jesse Pires MD [address] [place] [address], [address], [facility] 06/16/2020 14:33:11 02/20/20 20 Lumbar Transforaminal Epidural Steroid Injection (1 Level Bilateral): completed Jesse Pires MD [address] [place] [address], [phone], [facility] 02/20/2020 09:56:29 01/02/20 20 Lumbar Transforaminal Epidural Steroid Injection (1 Level Bilateral): completed Jesse Pires MD [address] [place] [address], [phone], [facility] 01/02/2020 11:35:31 12/27/19 17 Appendectomy completed Mirella Smiley [facility] 05/29/2019 10:05:57 Orthopedic Surgery completed Mirella ulloa [facility] 05/29/2019 10:05:48 Imaging Results None recorded. [...] ORAL ROUTE FOR 30 DAYS. * DNF 12--10/02 completed Not Available Not Available Not Available [...] completed Not Available Not Available Not Available [place] 5 mg-325 mg tablet Take 1 tablet [...] t Available Vitals Date Recorded Body height Provider Name an d Address Organization Details Last Updated DateTime 06/05/2024 165.1 cm Cinthia Neumann [facility] 06/05/2024 09:21:58 Date Recorded Body height Oxygen saturation Oxygen saturation in Arterial blood by Pulse oximetry Body mass index (BMI) Body weight Heart rate Systolic And Diastolic Provider Name and Address Organization Details Last Updated DateTime 165.1 cm 100 % 100 % 35.8 kg/m2 65282.3 6 g 74 /min 119/78 mm[Hg] naya ramirez [facility] 10:23:42 Date Recorded Body height Body mass index (BMI) Body weight Pain severity - 0-10 verbal numeric rating [Score] - Reported Provider Name and Address Organization Details Last Updated DateTime 10/02/2024 165.1 cm 35.8 kg/m2 83848.36 g 8 Vin Jaquez [facility] 10/02/2024 09:16:55 Social History Question Answer Notes LastModified by Organizat ion Details LastModified Time Tobacco Smoking Status [facility] 10/24/2019 08:45:48 Do You Have An Advance Directive? No [email or web address] Information n ot available 12/14/2021 What Is Your Level Of Caffeine Consumption? None Information not available 05/29/2019 How Much Tobacco Do You Chew? None Information not available 05/29/2019 In The 14 Days Before Symptom Onset, Have You Had Close Contact With A Laboratory-confirm ed COVID-19 While That Case Was Ill? No [email or web address] Information n ot available 11/19/2020 In The 14 Days Before Symptom Onset, Have You Had Close Contact With A Person Who Is Under Investigation For COVID-19 While That Person Was Ill? No [email or web address] Information not available 11/19/2020 Have You Been To An Area Known To Be High Risk For COVID-19? No [email or web address] Information not available 11/19/2020 Are You Deaf Or Do You Have Serious Difficulty Hearing? No Information not available 05/29/2019 Which Illicit Or Recreational Drugs Have You Used? Denies Information not available 05/29/2019 Have You Processed Blood Or Body Fluids From An Ebola Virus Disease Patient Without Appropriate PPE? No Information not available 11/19/2020 Do You Reside In Or Have You Traveled To An Area Where Ebola Virus Transmission Is Active? No [email or web address] Information not available 11/19/2020 Education 10 [email or web address] Information no t available 11/19/2020 What Is The Highest Grade Or Level Of School You Have Completed Or The Highest Degree You Have Received? [id number] [email or web address] Information not available 11/19/2020 Hard Of Hearing Or Deaf In One Or Both Ears? No [email or web address] Information not available 11/19/2020 Prescription Drug Abuse No Information not available 05/29/2019 Disability No Information no t available 05/29/2019 History Of Sexual Abuse No Information not available 05/29/2019 Marital Status Single [email or web address] Informatio n not available 11/19/2020 Do You Have A Medical Power Of Contracting Specialist? No Information not available 06/05/2024 What Was The Date Of Your Most Recent Tobacco Screening? 10/02/2024 [email or web address] Information not available 10/02/2024 What Is Your Relationship Status? Single [email or web address] Information not available 11/19/2020 How Much Tobacco Do You Smoke? No Information not available 05/29/2019 General Stress Level High [email or web address] Information not available 11/19/2020 How Many Years Have You Smoked Tobacco? 30 [email or web address] Information not available 06/15/2021 Do You Have Difficulty Walking Or Climbing Stairs? Yes Information not available 05/29/2019 Sex: Unknown Functional Status Question Answer Note LastModified by Organizat ion Details LastModified Time What is your level of alcohol consumption? Occasional Information not available 05/29/2019 Do you or have you ever used smokeless tobacco? Never used smokeless tobacco [email or web address] Information not available 11/19/2020 Are you able to walk? [email or web address] Information not available 05/29/2019 Do you have difficulty doing errands alone? 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 Yes Information not available 05/29/2019 Do you or have you ever used e-cigarettes or vape? Never used electronic cigarettes [email or web address] Information not available 11/19/2020 What is your [...] Disease N Gout N Seizure Disorder N Atrial Fibrillation N Thyroid Disease N Head Trauma/Injury N Hernia N Depression N COPD N Anxiety Disorder N Acid Reflux (GERD) Y Cancer N Stroke N Skin Disorder N High Cholesterol N Liver Disease N Rheumatoid Arthritis N Headaches N Fibromyalgia N Kidney Disease N Autoimmune Disease N Osteoarthritis N Neurosurgery N DVT N Peptic Ulcer Disease Y Anemia N Heart Attack ([place]) N Diabetes N Cardiomyopathy N Bleeding Disorder [...] SNOMED-CT Code Diagnosis ICD10 Code Diagnosis Note [id number] Jesse Pires MD [facility] [address] [place] [address] 05/29/2019 09:44:55 05/29/2019 10:36:37 Long-term drug therapy 883407026 Z79.899 The urine sample is being sent for quantitati ve LCMS analysis of illicit drugs (Cocaine, Methamphet amine, Heroin, Fentanyl, THC, Synthetic Cannabinoi ds, Kratom, MDMA, PCP, and Synthetic Stimulants , Opiates (Codeine, Hydrocodon e, Hydromorph one, and Morphine), Oxycodone, Oxymorphon e, Methadone, Synthetic Opioids (Tramadol, Tapentadol , and Buprenorph ine), Benzodiaze pines (Alprazola m, Clonazepam , Lorazepam, Diazepam, Nordazepam , Oxazepam, and Temazepam) , Gabapentin , Pregabalin , Muscle Relaxants (Carisopro dol, Cyclobenza alberto, and Meprobamat e), Ketamine, Nalaxone, and Amphetamin e, as this patient is being prescribed opioid medication s for the first time at this practice. The purpose of this analysis is to confirm the patients stated medication usage and to establish baseline medication and metabolite quantities , and to evaluate for use of medication s that are not prescribed or reported by the patient. Degenerati on of lumbar intervertebral disc 87830653 M51.36 [id number] Jesse Pires MD [facility] [address] [place] [address] 06/27/2019 10:30:14 06/27/2019 11:18:51 Long-term drug therapy 108412348 Z79.899 Send for LCMS confirmati on of Opiates (Codeine, Hydrocodon e, Hydromorph one, Morphine, and Heroin) to confirm the quantitati ve level of drug and metabolite s, as the preliminar y IA test for Opiates is negative, but the patient is prescribed these medication s and reports taking them within the last 48-72 hours. Send for LCMS confirmati on of Oxycodone and Oxymorphon e as these drugs are frequently not detected with IA testing at 300ng/mL and these are frequently used and/or abused pain medication s in our community. Send for LCMS confirmati on of Synthetic Opioids (Fentanyl, Methadone, Tramadol, Tapentadol , and Buprenorph ine) as these drugs will not be detected in Opiate IA testing and these are frequently used and/or abused pain medication s in our community. Send for LCMS confirmati on of Gabapentin to confirm the quantitati ve level of this drug and its metabolite as it will not be detected in IA testing and the patient is currently prescribed Gabapentin . Degenerati on of lumbar intervertebral disc 60325208 M51.36 [id number] Annalise Galicia NP [facility] [address] [facility] [address] [place] [address] 07/24/2019 08:49:49 07/24/2019 09:17:41 Long-term drug therapy 639022636 Z79.899 Send for LCMS confirmati on of Opiates (Codeine, Hydrocodon e, Hydromorph one, Morphine, and Heroin) to confirm the quantitati ve level of drug and metabolite s in this urine sample, as hydrocodon e is part of a larger family of drugs that could be present with a positive Opiate IA test. Send for LCMS confirmati on of Oxycodone and Oxymorphon e as these drugs are frequently not detected with IA testing at 300 ng/mL and these are frequently used and/or abused pain medication s in our community. Send for LCMS confirmati on of Synthetic Opioids (Fentanyl, Methadone, Tramadol, Tapentadol , and Buprenorph ine) as these drugs will not be detected in Opiate IA testing and these are frequently used and/or abused pain medication s in our community. Send for LCMS confirmati on of Gabapentin to confirm the quantitati ve level of this drug and its metabolite as it will not be detected in IA testing and the patient is currently prescribed Gabapentin . Degenerati on of lumbar intervertebral disc 46901319 M51.36 [id number] Annalise Galicia NP [facility] [address] [place] [address] 08/22/2019 10:53:18 08/22/2019 11:41:37 Long-term drug therapy 053398166 Z79.899 Send for LCMS confirmati on of Oxycodone and Oxymorphon e to confirm the quantitati ve levels of these drugs in this urine sample, as the preliminar y IA test for Oxycodone is positive, but the patient is not prescribed this family of medication s base on history and review of PDMP. Send for LCMS confirmati on of Opiates (Codeine, Hydrocodon e, Hydromorph one, Morphine, and Heroin) as these are frequently used and/or abused pain medication s amongst chronic pain patients in our community. Send for LCMS confirmati on of Synthetic Opioids (Fentanyl, Methadone, Tramadol, Tapentadol , and Buprenorph ine) as these drugs will not be detected in Opiate IA testing and these are also frequently used and/or abused pain medication s in our community. Send for LCMS confirmati on of Opiates (Codeine, Hydrocodon e, Hydromorph one, Morphine, and Heroin) to confirm the quantitati ve level of drug and metabolite s, as the preliminar y IA test for Opiates is negative, but the patient is prescribed these medication s and reports taking them within the last 48-72 hours. Send for LCMS confirmati on of Oxycodone and Oxymorphon e as these drugs are frequently not detected with IA testing at 300ng/mL and these are frequently used and/or abused pain medication s in our community. Send for LCMS confirmati on of Synthetic Opioids (Fentanyl, Methadone, Tramadol, Tapentadol , and Buprenorph ine) as these drugs will not be detected in Opiate IA testing and these are frequently used and/or abused pain medication s in our community. Degenerati on of lumbar intervertebral disc 29618976 M51.36 [id number] Annalise Galicia NP [facility] [address] [place] [address] 09/19/2019 08:45:09 09/19/2019 09:29:12 Long-term drug therapy 619567532 Z79.899 Send for LCMS confirmati on of Opiates (Codeine, Hydrocodon e, Hydromorph one, Morphine, and Heroin) to confirm the quantitati ve level of drug and metabolite s, as the preliminar y IA test for Opiates is negative, but the patient is prescribed these medication s and reports taking them within the last 48-72 hours. Send for LCMS confirmati on of Oxycodone and Oxymorphon e as these drugs are frequently not detected with IA testing at 300ng/mL and these are frequently used and/or abused pain medication s in our community. Send for LCMS confirmati on of Synthetic Opioids (Fentanyl, Methadone, Tramadol, Tapentadol , and Buprenorph ine) as these drugs will not be detected in Opiate IA testing and these are frequently used and/or abused pain medication s in our community. Send for LCMS confirmati on of Gabapentin to confirm the quantitati ve level of this drug and its metabolite as it will not be detected in IA testing and the patient is currently prescribed Gabapentin . Degenerati on of lumbar intervertebral disc 95957525 M51.36 [id number] Annalise Galicia NP [facility] [address] [place] [address] 10/24/2019 08:41:05 10/24/2019 09:18:12 Long-term drug therapy 786913060 Z79.899 The preliminar y IA urine drug screen is appropriat e for the class of medication (s) that the patient is being prescribed and based on their risk stratifica tion I will not send this sample for further quantitati ve LCMS testing. Degenerati on of lumbar intervertebral disc 53282991 M51.36 [id number] Jesse Pires MD [facility] [address] [place] [address] 11/12/2019 08:49:05 11/12/2019 09:31:39 Long-term drug therapy 016931894 Z79.899 Up to date Informed Consent and Opioid Agreement have been signed and incorporat ed into the chart. Patient has been provided written educationa l materials regarding potential adverse effects of superintendent marine oil terminal opioid therapy MEDICAL INDICATION S: Pain has been refractory to repeated attempts at conservati ve management , is of a moderate to severe degree and an organic source is suspected. The medication prescribed will be used in conjuction with a comprehens trae pain program to meet the establishe d goals. Urine drug screening is regularly performed to monitor compliance during active treatment for medication misuse or diversion. DAWSON/OAR S has been reviewed and documented to assure compliance with dosing scheduling , pain agreement MY OVERALL IMPRESSION IS THAT THIS PATIENT IS BENEFITING FROM OPIOID THERAPY. Degenerati on of lumbar intervertebral disc 20739308 M51.36 [id number] Jesse Pires MD [facility] [address] [place] [address] 12/18/2019 08:40:19 12/18/2019 09:23:32 Long-term drug therapy [id number] Z79.899 Send for LCMS confirmati on of Opiates (Codeine, Hydrocodon e, Hydromorph one, Morphine, and Heroin) to confirm the quantitati ve level of drug and metabolite s in this urine sample, as hydrocodon e is part of a larger family of drugs that could be present with a positive Opiate IA test. Send for LCMS confirmati on of Oxycodone and Oxymorphon e as these drugs are frequently not detected with IA testing at 300 ng/mL and these are frequently used and/or abused pain medication s in our community. Send for LCMS confirmati on of Synthetic Opioids (Fentanyl, Methadone, Tramadol, Tapentadol , and Buprenorph ine) as these drugs will not be detected in Opiate IA testing and these are frequently used and/or abused pain medication s in our community. Send for LCMS confirmati on of Gabapentin to confirm the quantitati ve level of this drug and its metabolite as it will not be detected in IA testing and the patient is currently prescribed Gabapentin . Degenerati on of lumbar intervertebral disc [id number] M51.36 History and exam are consistent with lumbar radiculiti s, supported by imaging which was reviewed today. Has not responded to > 3 months conservati ve therapy including but not limited to rest/ice/h eat, OTC medication s, PT. Symptoms are affecting ability to perform ADLs. Previous injections only approved as unilateral despite bilateral pain as this was dictated by worker comp claim. I will submit for bilateral diagnostic TFLESI L4-5. [id number] Jesse Pires MD [facility] [address] [place] [address] 01/02/2020 09:55:05 01/02/2020 10:47:51 Degeneration of lumbar intervertebral disc 72065471 M51.36 [id number] Jesse Pires MD [facility] [address] [place] [address] 01/22/2020 09:52:24 01/22/2020 10:23:03 Long-term drug therapy 296483211 Z79.899 Send for LCMS confirmati on of Gabapentin to confirm the quantitati ve level of this drug and its metabolite as it will not be detected in IA testing and the patient is currently prescribed Gabapentin . Send for LCMS confirmati on of Oxycodone and Oxymorphon e to confirm the quantitati ve levels of these drugs in this urine sample, as the preliminar y IA test for Oxycodone is positive, but the patient is not prescribed this family of medication s base on history and review of PDMP. Send for LCMS confirmati on of Opiates (Codeine, Hydrocodon e, Hydromorph one, Morphine, and Heroin) as these are frequently used and/or abused pain medication s amongst chronic pain patients in our community. Send for LCMS confirmati on of Synthetic Opioids (Fentanyl, Methadone, Tramadol, Tapentadol , and Buprenorph ine) as these drugs will not be detected in Opiate [place] testing and these are also frequently used and/or abused pain medication s in our community. Send for LCMS confirmati on of Opiates (Codeine, Hydrocodon e, Hydromorph one, Morphine, and Heroin) to confirm the quantitati ve level of drug and metabolite s in this urine sample, as hydrocodon e is part of a larger family of drugs that could be present with a positive Opiate IA test. Send for LCMS confirmati on of Oxycodone and Oxymorphon e as these drugs are frequently not detected with IA testing at 300 ng/mL and these are frequently used and/or abused pain medication s in our community. Send for LCMS confirmati on of Synthetic Opioids (Fentanyl, Methadone, Tramadol, Tapentadol , and Buprenorph ine) as these drugs will not be detected in Opiate [place] testing and these are frequently used and/or abused pain medication s in our community. Degenerati on of lumbar intervertebral disc 00389322 M51.36 [id number] MD Benita Dowling [place] [address] [place] [address] 02/20/2020 08:49:35 02/20/2020 09:04:12 Degeneration of lumbar intervertebral disc 80104350 M51.36 [id number] MD Benita Dowling [place] [address] [place] [address] 02/25/2020 08:40:23 02/25/2020 09:10:39 Degeneration of lumbar intervertebral disc 63356665 M51.36 Long-term drug therapy 894997991 Z79.899 [id number] Jesse Pires MD [place] [address] [place] [address] 03/26/2020 10:40:59 03/26/2020 11:29:15 Long-term drug therapy 616441901 Z79.899 Send for LCMS confirmati on of Opiates (Codeine, Hydrocodon e, Hydromorph one, Morphine, and Heroin) to confirm the quantitati ve level of drug and metabolite s, as the preliminar y IA test for Opiates is negative, but the patient is prescribed these medication s and reports taking them within the last 48-72 hours. Send for LCMS confirmati on of Oxycodone and Oxymorphon e as these drugs are frequently not detected with IA testing at 300ng/mL and these are frequently used and/or abused pain medication s in our community. Send for LCMS confirmati on of Synthetic Opioids (Fentanyl, Methadone, Tramadol, Tapentadol , and Buprenorph ine) as these drugs will not be detected in Opiate IA testing and these are frequently used and/or abused pain medication s in our community. Degenerati on of lumbar intervertebral disc 42478665 M51.36 [id number] MD Benita Dowling [place] [address] [place] [address] 04/24/2020 09:40:27 04/24/2020 10:35:10 Degeneration of lumbar intervertebral disc 06778361 M51.36 Lumbar radiculopathy 128 M54.16 Long-term drug therapy 848150368 Z79.899 Up to date Informed Consent and Opioid Agreement have been signed and incorporat ed into the chart. Patient has been provided written educationa l materials regarding potential adverse effects of [facility] opioid therapy MEDICAL INDICATION S: Pain has been refractory to repeated attempts at conservati ve management , is of a moderate to severe degree and an organic source is suspected. The medication prescribed will be used in conjuction with a comprehens trae pain program to meet the establishe d goals. Urine drug screening is regularly performed to monitor compliance during active treatment for medication misuse or diversion. DAWSON/OAR S has been reviewed and documented to assure compliance with dosing scheduling , pain agreement MY OVERALL IMPRESSION IS THAT THIS PATIENT IS BENEFITING FROM OPIOID THERAPY. [id number] Jesse Pires MD [facility] [address] [place] [address] 05/22/2020 08:25:06 05/22/2020 09:03:33 Long-term drug therapy 546743326 Z79.899 Send for LCMS confirmati on of Opiates (Codeine, Hydrocodon e, Hydromorph one, Morphine, and Heroin) to confirm the quantitati ve level of drug and metabolite s in this urine sample, as hydrocodon e is part of a larger family of drugs that could be present with a positive Opiate IA test. Send for LCMS confirmati on of Oxycodone and Oxymorphon e as these drugs are frequently not detected with IA testing at 300 ng/mL and these are frequently used and/or abused pain medication s in our community. Send for LCMS confirmati on of Synthetic Opioids (Fentanyl, Methadone, Tramadol, Tapentadol , and Buprenorph ine) as these drugs will not be detected in Opiate IA testing and these are frequently used and/or abused pain medication s in our community. Degenerati on of lumbar intervertebral disc 69219252 M51.36 Lumbar radiculopathy 128 M54.16 [id number] MD [facility] [place] [address] [place] [address] 06/16/2020 13:03:23 06/16/2020 13:22:17 Degeneration of lumbar intervertebral disc 06800167 M51.36 [id number] Jesse Pires MD [place] [address] [place] [address] 06/18/2020 07:45:16 06/18/2020 08:26:38 Degeneration of lumbar intervertebral disc 65831452 M51.36 Lumbar radiculopathy 128 865175 M54.16 Long-term drug therapy 115577239 Z79.226 [id number] Jesse Pires MD [place] [address] [place] [address] 07/17/2020 08:38:42 07/17/2020 08:57:38 Long-term drug therapy 117241658 Z79.899 Send for LCMS confirmati on of Oxycodone and Oxymorphon e to confirm the quantitati ve levels of these drugs that the patient is prescribed . Send for LCMS confirmati on of Opiates (Codeine, Hydrocodon e, Hydromorph one, Morphine, and Heroin) as these are frequently used and/or abused pain medication s amongst chronic pain patients in our community. Send for LCMS confirmati on of Synthetic Opioids (Fentanyl, Methadone, Tramadol, Tapentadol , and Buprenorph ine) as these drugs will not be detected in Opiate [place] testing and these are also frequently used and/or abused pain medication s in our community. Degenerati on of lumbar intervertebral disc 87642677 M51.36 Lumbar radiculopathy 128 455218 M54.16 [id number] LILY GALVEZ [place] [address] [address] 08/20/2020 08:51:30 08/20/2020 09:05:17 Degeneration of lumbar intervertebral disc 74288947 M51.36 Lumbar radiculopathy 128 694976 M54.16 Long-term drug therapy 080438752 Z79.189 [id number] Jesse Pires MD [place] [address] [place] [address] 09/22/2020 08:35:00 09/22/2020 09:05:39 Degeneration of lumbar intervertebral disc 75418663 M51.36 Lumbar radiculopathy 128 333354 M54.16 Long-term drug therapy 347342804 Z79.975 [id number] Jesse Pires MD [facility] [address] [place] [address] 10/22/2020 08:17:36 10/22/2020 08:34:18 Long-term drug therapy 354896927 Z79.899 Send for LCMS confirmati on of Oxycodone and Oxymorphon e to confirm the quantitati ve levels of these drugs that the patient is prescribed . Send for LCMS confirmati on of Opiates (Codeine, Hydrocodon e, Hydromorph one, Morphine, and Heroin) as these are frequently used and/or abused pain medication s amongst chronic pain patients in our community. Send for LCMS confirmati on of Synthetic Opioids (Fentanyl, Methadone, Tramadol, Tapentadol , and Buprenorph ine) as these drugs will not be detected in Opiate IA testing and these are also frequently used and/or abused pain medication s in our community. Degenerati on of lumbar intervertebral disc 84268170 M51.36 Lumbar radiculopathy 128 326264 M54.16 [id number] Jesse Pires MD [facility] [address] [place] [address] 11/19/2020 08:52:51 11/19/2020 09:26:01 Degeneration of lumbar intervertebral disc 02267189 M51.36 Lumbar radiculopathy 128 365541 M54.16 Long-term drug therapy 648247077 Z79.899 Up to date Informed Consent and Opioid Agreement have been signed and incorporat ed into the chart. Patient has been provided written educationa l materials regarding potential adverse effects of [facility] opioid therapy MEDICAL INDICATION S: Pain has been refractory to repeated attempts at conservati ve management , is of a moderate to severe degree and an organic source is suspected. The medication prescribed will be used in conjuction with a comprehens trae pain program to meet the establishe d goals. Urine drug screening is regularly performed to monitor compliance during active treatment for medication misuse or diversion. DAWSON/OAR S has been reviewed and documented to assure compliance with dosing scheduling , pain agreement MY OVERALL IMPRESSION IS THAT THIS PATIENT IS BENEFITING FROM OPIOID THERAPY. [id number] Jesse Pires MD [place] [address] [place] [address] 12/17/2020 08:34:21 12/17/2020 08:52:33 Degeneration of lumbar intervertebral disc 47116046 M51.36 Lumbar radiculopathy 128 773073 M54.16 Long-term drug therapy 917537309 Z79.776 [id number] Jesse Pires MD [place] [address] [place] [address] 01/12/2021 08:52:51 01/12/2021 09:29:02 Degeneration of lumbar intervertebral disc 05451180 M51.36 [id number] Jesse Pires MD [place] [address],[facility] [place] [address] 01/14/2021 09:17:25 01/14/2021 09:57:57 Long-term drug therapy 518041872 Z79.899 Send for LCMS confirmati on of Oxycodone and Oxymorphon e to confirm the quantitati ve levels of these drugs that the patient is prescribed . Send for LCMS confirmati on of Opiates (Codeine, Hydrocodon e, Hydromorph one, Morphine, and Heroin) as these are frequently used and/or abused pain medication s amongst chronic pain patients in our community. Send for LCMS confirmati on of Synthetic Opioids (Fentanyl, Methadone, Tramadol, Tapentadol , and Buprenorph ine) as these drugs will not be detected in Opiate IA testing and these are also frequently used and/or abused pain medication s in our community. Send for LCMS confirmati on of Gabapentin to confirm the quantitati ve level of this drug and its metabolite as it will not be detected in IA testing and the patient is currently prescribed Gabapentin . Degenerati on of lumbar intervertebral disc 55629894 M51.36 Lumbar radiculopathy 128 218916 M54.16 [id number] MD [facility] [place] [address] [place] [address] 02/11/2021 09:09:24 02/11/2021 09:47:43 Degeneration of lumbar intervertebral disc 05730342 M51.36 Lumbar radiculopathy 128 227216 M54.16 Long-term drug therapy 444991854 Z79.899 Up to date Informed Consent and Opioid Agreement have been signed and incorporat ed into the chart. Patient has been provided written educationa l materials regarding potential adverse effects of [employer] opioid therapy MEDICAL INDICATION S: Pain has been refractory to repeated attempts at conservati ve management , is of a moderate to severe degree and an organic source is suspected. The medication prescribed will be used in conjuction with a comprehens trae pain program to meet the establishe d goals. Urine drug screening is regularly performed to monitor compliance during active treatment for medication misuse or diversion. DAWSON/OAR S has been reviewed and documented to assure compliance with dosing scheduling , pain agreement MY OVERALL IMPRESSION IS THAT THIS PATIENT IS BENEFITING FROM OPIOID THERAPY. [id number] MATHTEW GUZMAN NP [place] [address] [facility],[address] [place] [address] 03/16/2021 09:18:08 03/16/2021 09:43:46 Degeneration of lumbar intervertebral disc 01054370 M51.36 Lumbar radiculopathy 128 M54.16 [id number] Jesse Pires MD [facility] [address] [facility] [address] [place] [address] 04/20/2021 10:30:35 04/20/2021 11:01:12 Long-term drug therapy 301703253 Z79.899 Send for LCMS confirmati on of Oxycodone and Oxymorphon e to confirm the quantitati ve levels of these drugs that the patient is prescribed . Send for LCMS confirmati on of Opiates (Codeine, Hydrocodon e, Hydromorph one, Morphine, and Heroin) as these are frequently used and/or abused pain medication s amongst chronic pain patients in our community. Send for LCMS confirmati on of Synthetic Opioids (Fentanyl, Methadone, Tramadol, Tapentadol , and Buprenorph ine) as these drugs will not be detected in Opiate IA testing and these are also frequently used and/or abused pain medication s in our community. Degenerati on of lumbar intervertebral disc 98662567 M51.36 Lumbar radiculopathy 128 M54.16 [id number] Jesse Pires MD [address] [address] 05/18/2021 10:02:38 05/18/2021 10:35:16 Degeneration of lumbar intervertebral disc 55750635 M51.36 Long-term drug therapy 245035679 Z79.735 [id number] Jesse Pires MD [place] [address] [place] [address] 06/15/2021 10:17:36 06/15/2021 10:58:08 Degeneration of lumbar intervertebral disc 36462080 M51.36 Long-term drug therapy 653748246 Z79.650 [id number] Xi Hart APRN [facility] [address] [place] [address] 07/20/2021 09:15:58 07/20/2021 09:39:43 Long-term drug therapy 348100490 Z79.899 The patient was advised that the purpose of this urine drug screen is to monitor for compliance and to assist in risk stratifica tion. The results of this preliminar y screening test was discussed with the patient.Se nd for LCMS confirmati on of Oxycodone and Oxymorphon e to confirm the quantitati ve levels of these drugs that the patient is prescribed . Send for LCMS confirmati on of Opiates (Codeine, Hydrocodon e, Hydromorph one, Morphine, and Heroin) as these are frequently used and/or abused pain medication s amongst chronic pain patients in our community. Send for LCMS confirmati on of Synthetic Opioids (Fentanyl, Methadone, Tramadol, Tapentadol , and Buprenorph ine) as these drugs will not be detected in Opiate IA testing and these are also frequently used and/or abused pain medication s in our community. Degenerati on of lumbar intervertebral disc 78263521 M51.36 [id number] Jesse Pires MD [place] [address] [place] [address] 08/17/2021 10:15:29 08/17/2021 10:42:21 Degeneration of lumbar intervertebral disc 62387711 M51.36 Long-term drug therapy 624819129 Z79.565 [id number] Jesse Pires MD [facility] [address] [place] [address] 09/21/2021 08:48:54 09/21/2021 10:24:24 Long-term drug therapy 236859629 Z79.899 Lumbar radiculopathy 128 473387 M54.16 A prescripti on for opioids was prescribed today given the failure of more conservati ve treatment options. The risks (including dependency , addiction, and possible ), benefits, and alternativ es were discussed in detail with the patient. Goals of improved activity and analgesia will continue to be monitored in subsequent encounters . There is no evidence of addiction or aberrancy to date. The terms and conditions of the Opioid Contract were discussed in detail with the patient today. The patient is agreeable to the terms and signed the document. [id number] Jesse Pires MD [place] [address] [address] 10/15/2021 09:59:07 10/15/2021 10:39:35 Long-term drug therapy 675922745 Z79.899 Send for LCMS confirmati on of Oxycodone and Oxymorphon e to confirm the quantitati ve levels of these drugs that the patient is prescribed . Send for LCMS confirmati on of Opiates (Codeine, Hydrocodon e, Hydromorph one, Morphine, and Heroin) as these are frequently used and/or abused pain medication s amongst chronic pain patients in our community. Send for LCMS confirmati on of Synthetic Opioids (Fentanyl, Methadone, Tramadol, Tapentadol , and Buprenorph ine) as these drugs will not be detected in Opiate IA testing and these are also frequently used and/or abused pain medication s in our community. Degenerati on of lumbar intervertebral disc 42918884 M51.36 Lumbar radiculopathy 128 270201 M54.16 [id number] Jesse Pires MD [place] [address] [place] [address] 12/14/2021 09:04:35 12/14/2021 09:24:15 Lumbar radiculopathy 536229732 M54.16 Degenerati on of lumbar intervertebral disc 32652936 M51.36 Long-term drug therapy 114874404 Z79.050 [id number] MD Benita Dowling [place] [address] [place] [address] 02/10/2022 08:51:23 02/10/2022 09:15:15 Long-term drug therapy 020625071 Z79.899 Lumbar radiculopathy 128 693837 M54.16 Degenerati on of lumbar intervertebral disc 97805682 M51.36 [id number] Jesse Pires MD [place] [address] [place] [address] 04/14/2022 09:25:38 04/14/2022 10:00:35 Long-term drug therapy 856037148 Z79.899 Lumbar radiculopathy 128 171694 M54.16 Degenerati on of lumbar intervertebral disc 00864845 M51.36 [id number] Xi Hart APRN [place] [address] [address] 06/14/2022 09:28:53 06/14/2022 09:49:18 Lumbar radiculopathy 638842039 M54.16 Degenerati on of lumbar intervertebral disc 26361120 M51.36 Long-term drug therapy 124032135 Z79.899 Based on the patients urine confirmati on (LCMS) results, the patient's overall risk level will remain the same. I would consider the patient to be Moderate risk based on these new results. In response to the patient's risk level and urine confirmati on I plan to not change the patient's opioid prescripti on. [id number] Jesse Pires MD [place] [address] [address] 08/11/2022 09:00:39 08/11/2022 10:01:19 Long-term drug therapy 778838744 Z79.899 Lumbar radiculopathy 128 099060 M54.16 Degenerati on of lumbar intervertebral disc 33078745 M51.36 Myofascial pain 16615970 9 M79.10 [id number] Zen Richards MD [place] [address] [place] [address] 10/13/2022 08:48:46 10/13/2022 09:22:26 Lumbar radiculopathy 405273844 M54.16 Degenerati on of lumbar intervertebral disc 06621882 M51.36 Long-term drug therapy 932915468 Z79.899 Myofascial pain 38903805 9 M79.10 [id number] Jesse Pires MD [place] [address] [place] [address] 12/13/2022 08:19:08 12/13/2022 08:46:00 Long-term drug therapy 588696068 Z79.899 Lumbar radiculopathy 128 735497 M54.16 Degenerati on of lumbar intervertebral disc 99310719 M51.36 Myofascial pain 12847071 9 M79.10 [id number] Jesse Pires MD [place] [address],[facility] [address] [place] [address] 02/09/2023 08:54:10 02/09/2023 09:36:22 Lumbar radiculopathy 716225520 M54.16 Degenerati on of lumbar intervertebral disc 69684214 M51.36 Long-term drug therapy 842146167 Z79.899 Myofascial pain 68764133 9 M79.10 [id number] Jesse Pires MD [place] [address],[facility] [address] [place] [address] 04/13/2023 10:06:56 04/13/2023 10:44:37 Long-term drug therapy 756485981 Z79.899 Send for LCMS confirmati on of Oxycodone and Oxymorphon e to confirm the quantitati ve levels of these drugs that the patient is prescribed . Send for LCMS confirmati on of Gabapentin to confirm the quantitati ve level of this drug and its metabolite as it will not be detected in qualitativ e screen and the patient is currently prescribed Gabapentin . Overweight 801985977 E66 .3 Hypertensi on screening 058100980 Z13.6 Lumbar radiculopathy 128 287806 M54.16 Degenerati on of lumbar intervertebral disc 46753427 M51.36 Myofascial pain 59039177 9 M79.10 [id number] Jesse Pires MD [place] [address] [place] [address] 06/13/2023 09:27:25 06/13/2023 09:46:26 Lumbar radiculopathy 605803847 M54.16 Degenerati on of lumbar intervertebral disc 42221366 M51.36 Myofascial pain 95232520 9 M79.10 Long-term drug therapy 141904306 Z79.899 Send for LCMS confirmati on of Oxycodone and Oxymorphon e to confirm the quantitati ve levels of these drugs that the patient is prescribed . Send for LCMS confirmati on of Gabapentin to confirm the quantitati ve level of this drug and its metabolite as it will not be detected in qualitativ e screen and the patient is currently prescribed Gabapentin . [id number] Jesse Pires MD [place] [address] [place] [address] 08/09/2023 08:49:51 08/09/2023 09:08:44 Lumbar radiculopathy 879946428 M54.16 Degenerati on of lumbar intervertebral disc 76909088 M51.36 Long-term drug therapy 144024479 Z79.899 Send for LCMS confirmati on of Oxycodone and Oxymorphon e to confirm the quantitati ve levels of these drugs that the patient is prescribed . Send for LCMS confirmati on of Gabapentin to confirm the quantitati ve level of this drug and its metabolite as it will not be detected in qualitativ e screen and the patient is currently prescribed Gabapentin . Myofascial pain 29558634 9 M79.10 [id number] Jesse Pires MD [place] [address] [place] [address] 10/11/2023 09:27:17 10/11/2023 10:00:28 Lumbar radiculopathy 237769269 M54.16 Myofascial pain 80373990 9 M79.10 Degenerati on of lumbar intervertebral disc 25593450 M51.36 Long-term drug therapy 697086702 Z79.899 Chronic pain 07341394 G8 9.29 [id number] Jesse Pires MD [facility] [address] [place] [address] 12/07/2023 09:25:21 12/07/2023 10:03:26 Long-term drug therapy 891672908 Z79.899 Lumbar radiculopathy 128 245877 M54.16 Myofascial pain 48286407 9 M79.10 Degenerati on of lumbar intervertebral disc 48573150 M51.36 Chronic pain 04649198 G8 9.29 [id number] Xi Hart APRN [facility] [address] [place] [address] 02/07/2024 09:27:10 02/07/2024 10:02:35 Long-term drug therapy 091991439 Z79.899 Lumbar radiculopathy 128 249278 M54.16 He does not wish to consider injection therapy at this time as the symptoms are currently very well-manag ed with his current oral medication regimen. The relief he receives makes possible for him to maintain a very active lifestyle. He is currently building a new home/barn in [facility]. Will continue this regimen unchanged. Myofascial pain 60702787 9 M79.10 Degenerati on of lumbar intervertebral disc 12864115 M51.362 Chronic pain 46109710 G8 9.29 [id number] XIANG HANLEY MD [facility] [address] [place] [address] 04/10/2024 09:11:28 04/10/2024 09:52:52 Long-term drug therapy 054277355 Z79.899 Chronic pain 69212439 G8 9.29 Lumbar radiculopathy 128 368025 M54.16 He is experienci ng severe pain in his lumbar spine with radiation down the bilateral legs following L5-S1 dermatomal pattern. The pain has caused difficulty with ambulation as well as completing household activities . We discussed possible treatment options and he has agreed to proceed with a bilateral lumbar TFESI. He is fearful of the out-of-poc ket cost. Please note, symptoms have not responded to >3 months conservati ve therapy including but not limited to physical therapy, physician directed home exercise, NSAID medication s. Symptoms are affecting patient's ability to perform ADLs. He is currently building a new home/barn in [facility]. The medication allows him to remain active and continue building his home. Will continue this regimen unchanged. Myofascial pain [id number] M79.10 Degenerati on of lumbar intervertebral disc [id number] M51.601 [id number] XIANG HANLEY MD [facility] [address] [place] [address] 04/25/2024 12:56:37 04/25/2024 14:28:54 Lumbar radiculopathy [id number] M54.16 [id number] XIANG HANLEY MD [facility] [address] [place] [address] 06/05/2024 09:08:14 06/05/2024 09:36:25 Chronic pain 08703092 G89.29 Lumbar radiculopathy 128 397077 M54.16 Since last visit, he completed a bilateral lumbar TFESI L5-S1 reports 70% ongoing relief of his radiating leg pain. He is aware that he may repeat this injection every 12 weeks as needed. He will let us know when he is ready to proceed. He is happy with his current oral medication regimen. The relief he receives allows him to maintain a very active lifestyle and continue several home projects as he is currently building a new home/barn in [facility]. We will not make any changes at this time. Myofascial pain [id number] 9 M79.10 Degenerati on of lumbar intervertebral disc 56250824 M51.362 Long-term drug therapy [id number] Z79.620 [id number] MONICA SCHUSTER MD [place] [address],[facility] [address] [place] [address] 07/31/2024 10:12:44 07/31/2024 10:40:27 Long-term drug therapy [id number] Z79.899 Chronic pain 87151407 G8 9.29 Lumbar radiculopathy 128 311293 M54.16 He did receive significan t symptom improvemen t following his most recent lumbar TFESI that was completed in March 2023. Unfortunat jenny, the symptoms recently began to dissipate. The worsening pain has caused difficulty with ambulation as well as complainin g of work activities . He would like to repeat this injection as soon as possible. I placed the order today. Will not make any changes to his current oral medication regimen as the relief allows him to maintain his current activity level. He is also able to continue working and complete home projects as he is building a new home. Myofascial pain 06106834 9 M79.10 Degenerati on of lumbar intervertebral disc 64690837 M51.157 [id number] MONICA SCHUSTER MD [facility] [address] [place] [address] 09/05/2024 10:02:57 09/05/2024 11:26:41 Lumbar radiculopathy [id number] M54.16 [id number] MONICA SCHUSTER MD [facility] [address] [place] [address] 10/02/2024 09:08:45 10/02/2024 09:39:36 Lumbar radiculopathy [id number] M54.16 Patient did initially receive 50% relief [...] close to 250 or above. Chronic pain 32060423 G8 9.29 Health Concerns Section Related Observation LastModified by Organization Detai ls LastModified Time None Recorded Concern Status LastModified by Organization Details LastModified Time None Recorded Advance Directives Directive N: Payers Insurance Date Sequence Insurance Name Policy Number Policy Guthrie Covered Member ID Gtuhrie Member ID Guarantor Name 10/12/2022 1 [employer] [id number] Andre Schmitz [id number] Andre Schmitz 10/12/[address] [facility] (MEDICAID HMO) Andremaddie Benderen [id number] Andremaddie Schmitz 08/02/2024 [place] Andremaddie Benderen [id number] Andremaddie Schmitz 10/12/2022 2 MEDICARE B-[place]: [place] Andre E Schmitz [id number] Andre Schmitz 09/29/2024 1 [employer] [place] (MEDICARE REPLACEMENT /ADVANTAGE - PPO) Andre Benderen [id number] Andremaddie Schmizt 08/02/2024 1 [employer] - [place] (MEDICARE REPLACEMENT /ADVANTAGE - HMO) Andre Schmitz [id number] Andre Schmitz 10/12/2022 1 [employer] [place] Andre Schmitz [id number] Andre Schmitz 10/12/2022 1 [employer] (MEDICARE REPLACEMENT /ADVANTAGE - HMO) Andre Benderen [id number] Andre Schmitz 10/12/2022 2 [employer] (HMO) Andre Monet Schmitz [id number] Andre Schmitz 10/12/2022 2 [place] Andre Monet Schmitz [id number] Andre Nadir
== END 2024-10-19 23:59 | disposition home or self-care (01) ==
LOC: LAB.DROPOF 10-22 12:22
PROVIDERS: PCP Nurse Practitioner Family; Visit Provider Nurse Practitioner Family
DX: E11.9 Type 2 diabetes mellitus without complications (principal)
CPT/HCPCS: 82043; 82570

== ENCOUNTER 2024-11-06 10:00 | Outpatient (CLI) | payer MEDICARE, SELFPAY ==
--- OUTSIDE RECORDS SUMMARY | 2020-03-06 05:34 | XMS_ITS | Continuity of Care Document ---
Author Organization [facility] Address [address] [place] [address] Phone Care Team Providers Care Nutrition Representative Name Role Phone William Robertson MD Unavailable Unavailable Medications Medication Instructions Dosage Effective Dates (start - stop) Status Comments TIZANIDINE HCL 4 MG TABLET TAKE 1 TABLET BY ORAL ROUTE EVERY NIGHT BEFORE BED NEEDED. - Active gabapentin 300 mg capsule take 1 capsule by oral route 4 times every day - Active Mobic 15 mg tablet TAKE 1 TABLET BY MOUTH EVERY DAY - Active Naprosyn 500 mg tablet take 1 tablet by oral route 2 times every day with food 500 MG - Active VALSARTAN (unknown strength) take 1 tablet by oral route every day Not Available - Active Procedures Procedure Date Office/outpatient visit,est, mod 2019 Njx interlaminar lmbr/sac Methylprednisolone 80 MG inj Office/outpatient visit,est, mod 2018 MRI Lumbar Spine wo Contrast Office/outpatient visit,est, mod 2018 Office/outpatient visit,est, mod 2018 NRV CNDJ TST 5-6 STUDIES MUSC TEST DONE W/N TEST COMP Office/outpatient visit,est, mod 2018 Office/outpatient visit,est, mod 2018 Office/outpatient visit,est, mod 2018 Injection, sacroiliac joint Methylprednisolone 40 MG inj Office/outpatient visit,est, mod 2017 Office/outpatient visit,new, mod 2017 X-ray exam lwr spine, min 4 views Office/outpatient visit,est, mod 2017 Njx interlaminar lmbr/sac Methylprednisolone 80 MG inj Office/outpatient visit,est, mod 2017 Office/outpatient visit,est, mod 2017 Njx interlaminar lmbr/sac Methylprednisolone 40 MG inj Office/outpatient visit,est, mod 2017 Njx interlaminar lmbr/sac Methylprednisolone 80 MG inj Office/outpatient visit,new, mod 2017 Advance Directives Directive Yes / No Effective Date File Name No Information Encounters Encounter Description Practice Location Reason(s) For Visit Diagnoses Date Provider Providers Copied on Encounter [facility], [address] [place] [address], [address] [place] [address] tel:[phone] [facility] No Information 0 Marcelo Thomas. [address] [place] [address]. tel:[phone] [facility] [address], [facility], tel:[phone] [facility] No Information 0 Marcelo Thomas. [address] [place] [address]. tel:[phone] Office/outpa tient visit,est, mod [facility] [address], [address] [place] [address] tel:[phone] [facility] No Information 0 Marcelo Thomas. [address] [place] [address], . tel:[phone] Referring Provider: William Robertson, [address] [place] [address]. tel:[phone] [facility] [address], [address] [place] [address] tel:[phone] [facility] No Information 9 Marcelo Thomas. [address] [place], [address], [place]. tel:[phone] Referring Provider: William Robertson, [address] [place] [address], [address]. tel:[phone] Office/outpa tient visit,est, mod [facility], [address] [place] [address], [facility], tel:[phone] [facility] No Information 9 Marcelo Thomas. [address] [place] [address], [address], [place]. tel:[phone] [facility], [address] [place] [address], [address], [place] tel:[phone] [facility] No Information 9 Marcelo Tohmas. [address] [place] [address], [address], [place]. tel:[phone] Referring Provider: William Robertson, [address] [place] [address], [facility]. tel:[phone] Office/outpa tient visit,est, mod [facility], [address] [place] [address], [address], [place] tel:[phone] [facility] No Information 9 Marcelo Thomas. [address] [place] [address], [address], [place]. tel:[phone] Referring Provider: William Robertson, [address] [place] [address], [address]. tel:[phone] Office/outpa tient visit,est, mod [facility], [address] [place] [address], [address], [place] tel:[phone] [facility] No Information 9 Apple Berry. [address] [place], [address], [place]. tel:[phone] Referring Provider: William Robertson, [address] [place] [address], [address]. tel:[phone] [facility], [address] [place] [address], [address], [place] tel:[phone] [facility] EMG (chief complaint) No Information 9 Joshua He. [address] [employer] [facility], [address], [place], [place], [id number], [place]. tel:[phone] Referring Provider: William Robertson, [facility] [place], [address]. tel:[phone] [facility]pa [facility]ient visit,est, mod [facility], [address] [place] [address], [address], tel:[phone] [facility] No Information 9 Apple Berry. [address] [place], [address], [place]. tel:[phone] Referring Provider: William Robertson, [facility] [place], [address]. tel:[phone] [facility]pa [facility]ient visit,est, [facility], [address] [place] [address], [address], tel:[phone] [facility] No Information 9 Apple Berry. [address] [place], [address], [place]. tel:[phone] Referring Provider: William Robertson, [address] [place], [address]. tel:[phone] [facility]outpa [facility]ient visit,est, mod [facility], [address] [place] [address], [address], [place] tel:[phone] [facility] Radiculopathy, lumbar regionLow back pain 9 Apple Berry. [address] [place], [address], [place]. tel:[phone] Referring Provider: William Robertson, [address] [place], [address]. tel:[phone] [facility], [address] [place] [address], [facility], tel:[phone] [facility] Inflammatory spondylopathy of sacral region 0 9 Krvesna Silvestrein. [address] [place], [address], [place]. tel:[phone] Referring Provider: William Robertson, [address] [place] [address], [facility]. tel:[phone] Office/outpa tient visit,est, mod [facility], [address] [place] [address], [facility], tel:[phone] [facility] No Information 0 3 8 Jenni Molina. [address] [place], [place], [facility], . 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 [address] [place], [address], [place]. tel:[phone] Referring Provider: William Robertson, [address] [place] [address], [facility]. tel:[phone] Office/outpa tient visit,new, mod [facility], [address] [place] [address], [facility], tel:[phone] [facility] No Information 8 Jenni Molina. [facility] [place], [place], [facility], . tel:[phone] Referring Provider: William Robertson, [address] [place] [address], [address]. tel:[phone] Office/outpa tient visit,est, mod [facility], [address] [place], [place], [facility], tel:[phone] 700 [facility] No Information 8 Sower William. [address] [place] [address], [facility], . tel:[phone] [facility], [address] [place], [place], [facility], tel:[phone] [facility] No Information 8 Sower William. [address] [place] [address], [facility], . tel:[phone] Office/outpa tient visit,est, mod [facility], [address] [place], [place], [facility], tel:[phone] [facility] No Information 8 Sower William. [address] [place] [address], [facility], . tel:[phone] Office/outpa tient visit,est, mod [facility], [facility] [place], [place], [facility], tel:[phone] [facility] No Information 8 Sower William. [address] [place] [address], [facility], . tel:[phone] [facility], [address] [place] [address], [facility], tel:[phone] [facility] No Information 8 Sower William. [address] [place] [address], [facility], . tel:[phone] Office/outpa tient visit,est, mod [facility], [address] [place], [place], [facility], tel:[phone] [facility] No Information 8 Sower William. [address] [place] [address], [facility], . tel:[phone] [facility], [address] [place], [place], [facility], tel:[phone] [facility] No Information 8 Marcelo Thomas. [address] [place], [place], [facility], . tel:[phone] Office/outpa tient visit,[facility], [address], [place], [address], tel:[phone] [facility] No Information 8 Marcelo Thomas. [address] [place], [place], [facility], . tel:[phone] Family History Family Member Type Diagnosis Age At Onset No Information Payers Payer name Insurance type Covered constitution party ID Abhi benavides(s) [employer] - [id number] Social History Type Description Quantity Date Captured Comments Sex Male Smoking Status No Information Chief Complaint And Reason For Visit No Information Reason For Referral Reason For Referral No Information Plan Of Treatment Date Type Action Status Future Order: Radiology Order MR I Lumbar Spine WO Contrast (52691), Collected on: , Sent on: Sent History Of Present Illness Encounter Date Complaint History Of Prese nt Illness EMG Functional Status Date Functional Assessmen t No Information Instructions Date Instruction Additional Infor mation No Information Assessments Type Assessment Date No Information Patient Care Teams Name Effective Dates (start - stop) Status Members No Information
[2024-11-06 15:09] LABS: Hematocrit 45.3 % (42.0-52.0); Hemoglobin 14.5 g/dL (14.1-18.0); Immature Granulocytes % 0.5 %; Mean Corpuscular HGB Conc 32.0 g/dL (31.8-35.4); Mean Corpuscular Hemoglobin 29.8 pg (27.0-31.2); Mean Corpuscular Volume 93.2 fl (80-94); Nucleated Red Blood Cells % 0 %; Platelet Count 268 K/mm3 (142-424); Red Blood Count 4.86 M/mm3 (4.60-6.20); Red Cell Distribution Width-SD 45.7 fL; White Blood Count 6.6 K/mm3 (4.8-10.8)
[2024-11-06 16:19] LABS: Alanine Aminotransferase 29 U/L (12-78); Albumin Level 4.2 g/dl (3.5-5.0); Albumin/Globulin Ratio 1.6 (1.1-1.8); Alkaline Phosphatase 129 U/L (38-126); Anion Gap 10.6 mEq/L (5-15); Aspartate Amino Transferase 30 U/L (17-59); Bilirubin,Total 0.3 mg/dl (0.2-1.3); Blood Urea Nitrogen 19 mg/dl (9-20); Calcium 9.4 mg/dl (8.4-10.2); Carbon Dioxide 30 mmol/L (22.0-30.0); Chloride 102 mmol/L (98-107); Creatinine,Serum 0.90 mg/dl (0.66-1.25); Estimated Glomerular Filt Rate 85 ml/min (>60); GFR (African American) 103 ML/MIN (>60); Globulin 2.6 g/dL (1.3-3.2); Glucose 162 mg/dl (74-100); Lipase 216 U/L (23-300); Potassium 4.6 mmoL/L (3.5-5.1); Sodium 138 mmol/L (136-145); Total Protein,Serum 6.8 g/dl (6.3-8.2)
--- OUTSIDE RECORDS SUMMARY | 2024-11-07 11:59 | XMS_ITS | Clinical Summary ---
Author Organization [facility] Address [address] [place] [address] Care Team Providers Care Tennis Desk Team Member Name Role Phone Neri Hahn MD Primary Care Provider [phone] Social History Tobacco Use Types Packs/Day Years [...] 2036 Insurance WC SELF AETNA Care Teams Tennis Desk Team Member Relationship Specialty Start Date End Date Neri Hahn MD [address] [place] [address] PCP - General Family Medicine 04/24/18
--- OUTSIDE RECORDS SUMMARY | 2024-11-07 11:59 | XMS_ITS | Clinical Summary ---
Author Organization [facility] Address [address] [place] [phone] Phone Care Team Providers Care Fly Raiser Lockstitch Name Role Phone Sebas Hahn MD Primary Care Provider [phone] Allergies No known active allergies Medications No [...] Address OC Personal Family Self Care Teams Fly Raiser Lockstitch Relationship Specialty Start Date End Date Sebas Hahn MD [address] [facility] [address] [place] [phone] PCP - General Psychiatry & Neurology-Neurology 10/20/11
== END 2024-11-06 23:59 | disposition home or self-care (01) ==
LOC: LAB.DROPOF 11-07 11:57
PROVIDERS: PCP Family Medicine; Visit Provider Family Medicine
DX: E11.9 Type 2 diabetes mellitus without complications (principal); Z87.19 Personal history of other diseases of the digestive system
CPT/HCPCS: 80053; 83690; 85025

== ENCOUNTER 2024-11-15 07:03 | Outpatient (CLI) | payer MEDICARE, SELFPAY ==
--- OUTSIDE RECORDS SUMMARY | 2020-03-06 05:34 | XMS_ITS | Continuity of Care Document ---
Author Organization [facility] Address [address] [place] [address] Phone Care Team Providers Care Clinical Mental Health Counselor Name Role Phone William Robertson MD Unavailable [...] Provider Providers Copied on Encounter [facility], [address] [place] [address], [address] [place] [address] tel:[phone] [facility] No Information 0 Marcelo Thomas. [address] [place] [address]. tel:[phone] [facility] [address], [facility], tel:[phone] [facility] No Information 0 Marcelo Thomas. [address] [place] [address]. tel:[phone] Office/outpa tient visit,est, mod [facility] [address], [address] [place] [address] tel:[phone] [facility] No Information 0 Marcelo Thomas. [address] [place] [address], . tel:[phone] Referring Provider: William Robertson, [address] [place] [address]. tel:[phone] [facility] [address], [address] [place] [address] tel:[phone] [facility] No Information 9 Marcelo Thomas. [address] [place], [address], [place]. tel:[phone] Referring Provider: William Robertson, [address] [place] [address], [address]. tel:[phone] Office/outpa tient visit,est, mod [facility], [address] [place] [address], [facility], tel:[phone] [facility] No Information 9 Marcelo Thomas. [address] [place] [address], [address], [place]. tel:[phone] [facility], [address] [place] [address], [address], [place] tel:[phone] [facility] No Information 9 Marcelo Thomas. [address] [place] [address], [address], [place]. tel:[phone] Referring Provider: William Robertson, [address] [place] [address], [facility]. tel:[phone] Office/outpa tient visit,est, mod [facility], [address] [place] [address], [address], [place] tel:[phone] [facility] No Information 9 Marcelo Thomas. [address] [place] [address], [address], [place]. tel:[phone] Referring Provider: William Robertson, [address] [place] [address], [address]. tel:[phone] Office/outpa tient visit,est, mod [facility], [address] [place] [address], [address], [place] tel:[phone] [facility] No Information 9 Apple Berry. [address] [place], [address], [place]. tel:[phone] Referring Provider: William Robertson, [address] [place] [address], [address]. tel:[phone] [facility], [address] [place] [address], [address], [place] tel:[phone] [facility] EMG (chief complaint) No Information 9 Joshua He. [address] [facility], [address], [place], [place], [id number], [place]. tel:[phone] Referring Provider: William Robertson, [facility] [place], [address]. tel:[phone] Office/outpa tient visit,est, mod [facility], [address] [place] [address], [address], tel:[phone] [facility] No Information 9 Apple Berry. [address] [place], [address], [place]. tel:[phone] Referring Provider: William Robertson, [facility] [place], [address]. tel:[phone] Office/outpa tient visit,est, mod [facility], [address] [place] [address], [address], tel:[phone] [facility] No Information 9 Apple Berry. [address] [place], [address], [place]. tel:[phone] Referring Provider: William Robertson, [address] [place], [address]. tel:[phone] Office/outpa tient visit,est, mod [facility], [address] [place] [address], [address], [place] tel:[phone] [facility] Radiculopathy, lumbar regionLow back pain 9 Apple Berry. [address] [place], [address], [place]. tel:[phone] Referring Provider: William Robertson, [address] [place], [address]. tel:[phone] [facility], [address] [place] [address], [facility], tel:[phone] [facility] Inflammatory spondylopathy of sacral region 0 9 Krvesna Silvestrein. [address] [place], [address], [place]. tel:[phone] Referring Provider: William Robertson, [address] [place] [address], [facility]. tel:[phone] Office/outpa tient visit,est, mod [facility], [address] [place] [address], [facility], tel:[phone] [facility] No Information 0 3 8 Jenni Molina. [address] [place], [place], [facility], . 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 [address] [place], [address], [place]. tel:[phone] Referring Provider: William Robertson, [address] [place] [address], [facility]. tel:[phone] Office/outpa tient visit,new, mod [facility], [address] [place] [address], [facility], tel:[phone] [facility] No Information 8 Jenni Molina. [facility] [address] [place], [place], [facility], . tel:[phone] Referring Provider: William Robertson, [address] [place] [address], [address]. tel:[phone] Office/outpa tient visit,est, mod [facility], [address] [place], [place], [facility], tel:[phone] 700 [facility] No Information 8 Sower William. [address] [place] [address], [facility], . tel:[phone] [facility], [address] [place], [place], [facility], tel:[phone] [facility] No Information 8 Sower William. [address] [place] [address], [facility], . tel:[phone] Office/outpa tient visit,est, mod [facility], [address] [place], [place], [facility], tel:[phone] [facility] No Information 8 Sower William. [address] [place] [address], [facility], . tel:[phone] Office/outpa tient visit,est, mod [facility], [facility] [place], [place], [facility], tel:[phone] [facility] No Information 8 Sower William. [address] [place] [address], [facility], . tel:[phone] [facility], [address] [place] [address], [facility], tel:[phone] [facility] No Information 8 Sower William. [address] [place] [address], [facility], . tel:[phone] Office/outpa tient visit,est, mod [facility], [address] [place], [place], [facility], tel:[phone] [facility] No Information 8 Sower William. [address] [place] [address], [facility], . tel:[phone] [facility], [address] [place], [place], [facility], tel:[phone] [facility] No Information 8 Marcelo Thomas. [address], [place], [facility], . tel:[phone] Office/outpa tient visit,[facility], [address], [place], [address], tel:[phone] [facility] No Information 8 Marcelo Thomas. [address], [place], [facility], . tel:[phone] Family History Family Member Type Diagnosis Age At Onset No Information Payers Payer name Insurance type Covered republican ID Abhi benavides(s) [employer] - [id number] Social History Type Description Quantity Date Captured Comments Sex Male Smoking Status No Information Chief Complaint And Reason For Visit No Information Reason For Referral Reason For Referral No Information Plan Of Treatment Date Type Action Status Future Order: Radiology Order MR I Lumbar Spine WO Contrast (40732), Collected on: , Sent on: Sent History Of Present Illness Encounter Date Complaint History Of Prese nt Illness EMG Functional Status Date Functional Assessmen t No Information Instructions Date Instruction Additional Infor mation No Information Assessments Type Assessment Date No Information Patient Care Teams Name Effective Dates (start - stop) Status Members No Information
--- NOTE | 2024-11-15 | CA_ITS ---
APPROVED REPORT Exam: Pharmacologic Technologist: Letitia Ríos Ht: 5 ft 3 in Wt: 223 lbs BSA: 2.03 m2 Medical History Medications: Tylenol, atorvastatin, duloxetine, Lqen-D54-tsalhya, metformin ER, metoprolol succinate ER, oxycodone-acetaminophen, pantoprazole, pregabalin, valsartan-hctz. Stress Test Details Test: Lexiscan. Reason for pharmacologic stress test: physical limitation. HR Resting HR: 56 bpm Max Heart Rate (APMHR): 157 bpm Max HR Achieved: 93 bpm Target HR (85% APMHR): 133 bpm % of APMHR: 59 Recovery HR: 73 bpm BP Resting BP: 128.0/83.0 mmHg Max BP: 144.0/95.0 mmHg Recovery BP: 144.0/95.0 mmHg ECG Resting ECG: Sinus bradycardia no ectopy. Stress ECG Conclusion Symptoms: None. Arrhythmias/Ectopy: PVC. ST-T Changes: Less than 1.5mm ST segment changes. Conclusion: Non-diagnostic ECG/Lexiscan. Electronically signed by : Tonya Troncoso MD 11/15/2024 15:45:30
--- OUTSIDE RECORDS SUMMARY | 2024-11-15 07:06 | XMS_ITS | Clinical Summary ---
Author Organization [facility] Address [address] [place] [phone] Phone Care Team Providers Care Advertising Strategist Name Role Phone Sebas Hahn MD Primary Care Provider [phone] Allergies No known active allergies Medications No [...] Address [place] Personal Family Self Care Teams Advertising Strategist Relationship Specialty Start Date End Date Sebas Hahn MD [address] [facility] [address] [place] [phone] PCP - General Psychiatry & Neurology-Neurology 10/20/11
--- OUTSIDE RECORDS SUMMARY | 2024-11-15 07:06 | XMS_ITS | Clinical Summary ---
Author Organization [facility] Address [address] [place] [address] Care Team Providers Care Architectural Wood Model Maker Name Role Phone Neri Hahn MD Primary Care Provider [phone] Social History Tobacco Use Types Packs/Day Years [...] 2036 Insurance WC SELF [employer] Care Teams Architectural Wood Model Maker Relationship Specialty Start Date End Date Neri Hahn MD [address] [place] [address] PCP - General Family Medicine 04/24/18
--- NOTE | 2024-11-15 07:30 | NM_ITS ---
APPROVED REPORT Exam: Nuclear Stress Test Indication: hx mi, hypertension, diabetes, hyperlipidemia, fm hx, c.p., sob, palpitations, fatigue Patient Location: Outpatient Stress Tech: Gabriela Bower [place] Tech:Natali Cruz ARRT RT (R)(N)(M) Ht: 5 ft 3 in Wt: 223 lbs HR: 55 bpm BP: 128/83 mmHg BSA: 2.03 m2 TID: 1.17 BMI: 39.4 History: hx mi, hypertension, diabetes, hyperlipidemia, fm hx, c.p., sob, palpitations, fatigue Procedure: Patient received 0.4 mg of intravenous Lexiscan, resting heart rate 55 bpm, resting blood pressure 128/83 mmHg, with Lexiscan maximum heart rate achieved was 91 bpm which is % of the maximum predicted heart rate and blood pressure was 135/79 mmHg. With Lexiscan, patient denied any complaint of chest pain. Cardiac Stress and Resting SPECT Images: Cardiac Stress and Resting SPECT images were obtained using technetium 99m Myoview 9.25 mCi stress and 10.81 mCi at rest. Resting and stress imaging in supine and prone positions demonstrate no evidence of fixed or reversible perfusion defects. Gated imaging demonstrates normal global and regional LV systolic function. LVEF is calculated at 53%. Conclusion: No evidence of fixed or reversible perfusion defects. Gated imaging demonstrates normal global and regional LV systolic function. LVEF is calculated at 53%. Electronically signed by : Tonya Troncoso MD 11/15/2024 13:14:46
[2024-11-15] MEDS: ISOTOPE MYOVIEW (PER STUDY) 1 DOSE IV (11:06)
[2024-11-15] MEDS: SODIUM CHLORIDE 0.9% 10ML SYR (RAD ONLY) 10 ML IV ×2 (11:06)
== END 2024-11-15 23:59 | disposition home or self-care (01) ==
LOC: RAD 07:05
PROVIDERS: PCP Family Medicine; Visit Provider Family Medicine
DX: I49.3 Ventricular premature depolarization (principal); I10 Essential (primary) hypertension; E11.9 Type 2 diabetes mellitus without complications; I25.2 Old myocardial infarction
CPT/HCPCS: 78452; 93016; 93017; 93018; A9502; J2785

== ENCOUNTER 2025-01-21 06:59 | Day surgery (SDC) | payer MEDICARE, SELFPAY ==
--- NOTE | 2025-01-17 07:16 | EXP.HP ---
History of Present Illness *Admission Date: 01/21/25 *History of present illness: Mr. Schmitz is a 64-year-old gentleman who is here for follow-up screening/surveillance colonoscopy. The patient did have a colonoscopy with Dr. Mahesh Jacobson MD and May 2020 and had 15 colon polyps (tubular adenomas x 2, small serrated adenoma x 1 and hyperplastic polyps x 12) removed. He did undergo colonoscopy in November 2021 (Paco Espinosa MD) and had 5 colon polyps (tubular adenomas x 2, small serrated adenoma x 1 and hyperplastic polyps x 2) removed. The examination is deemed medically necessary for screening/surveillance colonoscopy. The patient has been seen, interviewed and examined prior to the procedure by both myself and the anesthesia provider. [facility] Disclaimer: The information contained in this section may have been updated after the patient was seen, as this information can be updated by other users. Medical History History of pancreatitis Chest pain Tubular adenoma of colon Non morbid obesity IFG (impaired fasting glucose) Lumbar facet arthropathy Lumbar disc herniation Internal hemorrhage Chronic back pain Colon polyps Abscess, perirectal Depression with anxiety Kidney stone Depression Anxiety Arthritis Pancreatitis History of gastroesophageal reflux (GERD) Diabetes mellitus, type 2 Hyperlipidemia High blood pressure Surgical History History of appendectomy Family History Grandfather Colon cancer Grandmother Family history of myocardial infarction Family history of Alzheimer's disease Mother Family history of diabetes mellitus type II Social History Smoking Status: Former smoker alcohol intake: current alcohol intake frequency: a few times a week substance use type: denies use current occupational status: disabled Travel in the last 8 weeks?: None household members: other housing: house current occupational exposures/hazards: No caffeine: Yes Have you lived/traveled outside US in past 30 days?: No Contact w/someone who lives/traveled outside US past 30 days?: No Exposure to someone with infectious disease in past 14 days?: No Do you have a fever (greater than 100.4 F or 38 C)?: No Have you tested positive for COVID-19?: No Exposed to someone with COVID-19 in past 14 days?: No Do you have a sore throat?: No Do you have a cough?: No Do you have any weakness?: No Do you have any diarrhea?: No Are you experiencing any unusual bleeding?: No Do you have any muscle aches/pain?: No Do you have any abdominal pain?: No Are you experiencing loss of taste or smell?: No Other Medical History Have you received the Flu Vaccine for this season: Yes Have you received the Pneumonia Vaccine: No Review of Systems Review of Systems Review of systems (narrative): Negative *Cardiovascular Comments: Negative *Gastrointestinal Comments: Negative *Genitourinary Comments: Negative *Musculoskeletal Comments: Negative *Neurologic Comments: Negative Meds Home Medications and Allergies Home Medications ?Medication ?Instructions ?Recorded ?Confirmed ?Type acetaminophen 500 mg tablet 500 mg PO Q6H PRN Pain, Mild 11/06/18 01/21/25 History (Tylenol Extra Strength) blood sugar diagnostic (True #100 ea 03/31/22 01/21/25 Rx Metrix Glucose Test Strip) blood-glucose meter (True Metrix #1 ea 03/31/22 01/21/25 Rx Air Glucose Meter kit) [id number] tablet 1 tab PO DAILY 07/10/24 01/21/25 History metformin 500 mg tablet,extended See Rx Instructions .Route BID #90 11/06/24 01/21/25 Rx release 24 hr tabs pregabalin 100 mg capsule 100 mg PO TID 11/06/24 01/21/25 History atorvastatin 40 mg tablet See Rx Instructions .Route 11/29/24 01/21/25 Rx .COMPLEX #90 tabs duloxetine 60 mg capsule,delayed See Rx Instructions .Route 11/29/24 01/21/25 Rx release .COMPLEX #90 caps metoprolol succinate 100 mg See Rx Instructions .Route 11/29/24 01/21/25 Rx tablet,extended release 24 hr .COMPLEX #90 tabs pantoprazole 40 mg tablet,delayed See Rx Instructions .Route 11/29/24 01/21/25 Rx release .COMPLEX #90 tabs valsartan 320 See Rx Instructions .Route 11/29/24 01/21/25 Rx mg-hydrochlorothiazide 25 mg tablet .COMPLEX #90 tabs oxycodone-acetaminophen 7.5 mg-325 1 tab PO TID 12/04/24 01/21/25 History mg tablet New Prescriptions to Start Prescriptions: Allergies Allergy/AdvReac Type Severity Reaction Status Date / Time No Known Allergies Allergy Verified 01/21/25 07:19 Exam *Routine HEENT Exam Head: Present normocephalic Eye: Present EOMI and PERRL ENT: Present mucous membranes moist *Routine Neck Exam Neck: Present supple *Routine Respiratory Exam Respiratory: Present CTA bilaterally *Routine Cardiovascular Exam Cardiovascular: Present RRR *Routine Abdominal Exam Abdominal: Present soft and normoactive bowel sounds; Absent tenderness *Routine Rectal Exam Rectal:: deferred *Routine Genitalia Exam Genitalia:: deferred *Routine Extremities Exam Extremities: Absent cyanosis, clubbing or edema *Routine Skin Exam Skin: Present warm; Absent rash *Routine Neurological Exam Neurological: Present alert and oriented X3 Assessment and Plan *Assessment and plan (1) Personal history of adenomatous and serrated colon polyps: Status: Acute Category: Medical Code(s): Z86.0101 - Personal history of adenomatous and serrated colon polyps (2) Screening for colon cancer: Status: Acute Category: Medical Code(s): Z12.11 - Encounter for screening for malignant neoplasm of colon Plan A/P: 1. Personal history of adenomatous colon polyps is the preprocedural diagnosis. The patient will be anesthetized/sedated using MAC sedation. The patient has been seen and examined. Cardiac and lung assessment prior to the examination is stable. Proceed with planned screening colonoscopy.
[2025-01-17 11:03] VITALS: BMI 37.8
--- NOTE | 2025-01-21 07:02 | P.PCN_ITS ---
[facility] Procedure Note Date: 01/21/25 Time: 08:01 Procedure Note:: Colonoscopy Procedure Report: Colonoscopy Endoscopist: Luther Dickson II, MD Referring physician: Sebas Hahn MD Date of Procedure: January 21, 2025 Equipment: Olympus [id number] adult colonoscope Sedation: MAC sedation Indication: Mr. Schmitz is a 64-year-old gentleman who is here for follow-up screening/surveillance colonoscopy. The patient did have a colonoscopy with Dr. Mahesh Jacobson MD and May 2020 and had 15 colon polyps (tubular adenomas x 2, small serrated adenoma x 1 and hyperplastic polyps x 12) removed. He did undergo colonoscopy in November 2021 (Paco Espinosa MD) and had 5 colon polyps (tubular adenomas x 2, small serrated adenoma x 1 and hyperplastic polyps x 2) removed. The patient reports no abdominal pain, weight loss, change in his bowel habits or rectal bleeding. He reports no family history of colon cancer. The patient did have post ERCP pancreatitis in 2002. The examination is deemed medically necessary for screening/surveillance colonoscopy. Procedure: Prior to the procedure, a history and physical exam was performed, and patient's medications and allergies were reviewed. The risks, benefits and alternatives of the sedation and procedure were discussed with the patient. All questions were answered and informed consent was obtained. The patient was brought to the procedure room. Patient identification and proposed procedure were verified by the physician and the nurse. The patient was placed in a left lateral decubitus position and the scope was passed under direct vision. Throughout the procedure, the patient's blood pressure, pulse, and oxygen saturations were monitored continuously. The colonoscopy was accomplished without difficulty. The patient tolerated the procedure well. Findings: On digital rectal examination there was normal rectal tone. There were external hemorrhoidal tags. The prostate was 2+, smooth, soft, symmetric without nodules. The colonoscope was introduced through the anal canal to the rectum and advanced to the cecum. The ileocecal valve and appendiceal orifice were identified. The scope was advanced a short distance into the ileum which appeared grossly normal. The scope was then withdrawn into the colon. The cecum, ascending, transverse, descending, sigmoid and rectum were grossly normal. There were no mucosal abnormalities identified. Upon retroflexion within the rectum there were grade 1-2 internal hemorrhoids. The preparation was excellent throughout with Commerce Preparation Score of 9. The cecal time was 12 minutes. Impression: 1. Normal colonoscopy with intubation of the terminal ileum Plan: I would recommend repeat screening/surveillance colonoscopy again in 5 years based upon his history of multiple adenomatous colon polyps. I would encourage psyllium bulking fiber supplementation.
[2025-01-21 07:21] VITALS: BP 141/89; PULSE 89; RESP 16; O2SAT 94
[2025-01-21] MEDS: LACTATED RINGERS 1000ML 1,000 ML 50 ML IV (07:28)
--- NOTE | 2025-01-21 07:35 | P.PNANES_ITS ---
[facility] Disclaimer: The information contained in this section may have been updated after the patient was seen, as this information can be updated by other users. Medical History History of pancreatitis Chest pain Tubular adenoma of colon Non morbid obesity IFG (impaired fasting glucose) Lumbar facet arthropathy Lumbar disc herniation Internal hemorrhage Chronic back pain Colon polyps Abscess, perirectal Depression with anxiety Kidney stone Depression Anxiety Arthritis Pancreatitis History of gastroesophageal reflux (GERD) Diabetes mellitus, type 2 Hyperlipidemia High blood pressure Surgical History History of appendectomy Family History Grandfather Colon cancer Grandmother Family history of myocardial infarction Family history of Alzheimer's disease Mother Family history of diabetes mellitus type II Social History Smoking Status: Former smoker alcohol intake: current alcohol intake frequency: a few times a week substance use type: denies use current occupational status: disabled Travel in the last 8 weeks?: None household members: other housing: house current occupational exposures/hazards: No caffeine: Yes Have you lived/traveled outside US in past 30 days?: No Contact w/someone who lives/traveled outside US past 30 days?: No Exposure to someone with infectious disease in past 14 days?: No Do you have a fever (greater than 100.4 F or 38 C)?: No Have you tested positive for COVID-19?: No Exposed to someone with COVID-19 in past 14 days?: No Do you have a sore throat?: No Do you have a cough?: No Do you have any weakness?: No Do you have any diarrhea?: No Are you experiencing any unusual bleeding?: No Do you have any muscle aches/pain?: No Do you have any abdominal pain?: No Are you experiencing loss of taste or smell?: No [facility] Anesthesia Checklist Patient Identification Patient Identification: Arm Band and Verbal (Name & ) Structural Data Admitted From: Home Planned Operative Procedure/s: colonscopy Consent for Planned Operative Procedure(s) Verified: Yes Verified Documents: Surgical Consent and History and Physical NPO Status Verified Time NPO: 00:00 Additional verifications Anesthesia Reactions: No Previous Colonoscopy: Yes Airway Assessment Mallampati Score:: Class II Dentition: Good Dentition Neurological Assessment Level of Consciousness: Awake and Alert Hx Seizures: No Numbness or tingling in extremities: No Anesthesia Plan Anesthesia Risk discussed: Yes Anesthesia Plan: Verified ASA Class: II Anesthesia Type: MAC
[2025-01-21 08:02] VITALS: BP 114/70; PULSE 89; RESP 16; TEMP 36.9; O2SAT 93
[2025-01-21 08:12] VITALS: BP 109/72; PULSE 79; RESP 16; O2SAT 95
[2025-01-21 08:22] VITALS: BP 132/79; PULSE 89; RESP 18; O2SAT 94
[2025-01-21 08:32] VITALS: BP 133/88; PULSE 88; RESP 18; O2SAT 93
[2025-01-21 08:45] VITALS: BP 142/81; PULSE 84; RESP 18; TEMP 36.9; O2SAT 95
[2025-01-21 10:50] LABS: POC Glucose,Bedside 156 gm/dL (70-110)
== END 2025-01-21 08:45 | disposition home or self-care (01) ==
PROVIDERS: PCP Family Medicine; Visit Provider Internal Medicine Gastroenterology
PROC: 0DJD8ZZ Inspection of Lower Intestinal Tract, Via Natural or Artificial Opening Endoscopic (ICD-10-PCS; CPT 45378; principal; 2025-01-21 09:00)
DX: Z12.11 Encounter for screening for malignant neoplasm of colon (principal); K64.0 First degree hemorrhoids; K64.1 Second degree hemorrhoids; Z87.891 Personal history of nicotine dependence; I10 Essential (primary) hypertension; E78.5 Hyperlipidemia, unspecified; E66.9 Obesity, unspecified; F32.A Depression, unspecified; F41.9 Anxiety disorder, unspecified; M19.90 Unspecified osteoarthritis, unspecified site; Z79.84 Long term (current) use of oral hypoglycemic drugs; K21.9 Gastro-esophageal reflux disease without esophagitis; Z86.0101 Personal history of adenomatous and serrated colon polyps
CPT/HCPCS: 45378; 82962; J2003; J2704; J7120

== ENCOUNTER 2025-03-05 13:16 | Outpatient (CLI) | payer MEDICARE, SELFPAY ==
[2025-03-05 14:54] LABS: Coronavirus 19, PCR Not Detected (NotDetected); Influenza A, PCR Not Detected (NotDetected); Influenza B, PCR Not Detected (NotDetected)
[2025-03-05 15:00] LABS: Hematocrit 42.3 % (42.0-52.0); Hemoglobin 13.9 g/dL (14.1-18.0); Immature Granulocytes % 0.3 %; Mean Corpuscular HGB Conc 32.9 g/dL (31.8-35.4); Mean Corpuscular Hemoglobin 30.5 pg (27.0-31.2); Mean Corpuscular Volume 92.8 fl (80-94); Nucleated Red Blood Cells % 0 %; Platelet Count 285 K/mm3 (142-424); Red Blood Count 4.56 M/mm3 (4.60-6.20); Red Cell Distribution Width-SD 44.7 fL; White Blood Count 7.0 K/mm3 (4.8-10.8)
[2025-03-05 15:31] LABS: Anion Gap 15.7 mEq/L (5-15); Blood Urea Nitrogen 17 mg/dl (9-20); Calcium 9.7 mg/dl (8.4-10.2); Carbon Dioxide 28 mmol/L (22.0-30.0); Chloride 102 mmol/L (98-107); Creatinine,Serum 0.80 mg/dl (0.66-1.25); Estimated Glomerular Filt Rate 98 ml/min (>60); GFR (African American) 118 ML/MIN (>60); Glucose 127 mg/dl (74-100); Potassium 4.7 mmoL/L (3.5-5.1); Sodium 141 mmol/L (136-145)
== END 2025-03-05 23:59 | disposition home or self-care (01) ==
LOC: LAB.DROPOF 03-07 13:17
PROVIDERS: PCP Family Medicine; Visit Provider Family Medicine
DX: J40 Bronchitis, not specified as acute or chronic (principal); E11.9 Type 2 diabetes mellitus without complications
CPT/HCPCS: 80048; 85025; 87636